=== PATIENT | female | born 1970 | race Caucasian/White ===

== ENCOUNTER 2018-10-11 17:21 | Emergency (ER) | payer BC ==
[2018-10-11 17:34] VITALS: RESP 16
--- NOTE | 2018-10-11 18:03 | ED ---
Extremity Problem HPI - General Chief complaint: Extremity Problem,Nontraumatic Stated complaint: left leg swelling Time Seen by Provider: 10/11/18 17:36 Source: patient Mode of arrival: ambulatory Limitations: no limitations - History of Present Illness Initial comments: -year-old female presented for left lower extremity swelling for 3 weeks. Patient states she is more varicose vein for left and right. Patient states for 3 weeks she has noticed a nonpainful swelling of the left lower extremity denies history of uncontrolled DVT. Patient states she did have one after a >20 years ago. Patient denies use of anticoagulations, calf pain, chest pain or SOB. Patient presents an urgent care facility for evaluation where she was sent to the emergency department for further evaluation. Remaining ROS (-). Upon arrival patient appears well no signs of acute distress. - Related Data Home Medications Medication Instructions Recorded Confirmed Ranitidine HCl [Zantac] 75 mg PO DAILY PRN 10/11/18 10/11/18 Allergies Allergy/AdvReac Type Severity Reaction Status Date / Time No Known Allergies Allergy Verified 10/11/18 17:44 Review of Systems ROS Statement: Those systems with pertinent positive or pertinent negative responses have been documented in the HPI. ROS Other: All systems not noted in ROS Statement are negative. Past Medical History Additional Past Medical History / Comment(s): PANCREATITIS History of Any Multi-Drug Resistant Organisms: None Reported Past Surgical History: Cholecystectomy, Hysterectomy Past Psychological History: No Psychological Hx Reported Smoking Status: Current every day smoker Past Alcohol Use History: None Reported Past Drug Use History: None Reported General Exam - General Exam Comments Initial Comments: General: The patient is awake and alert, in no distress, and does not appear acutely ill. Eye: Pupils are equal, round and reactive to light, extra-ocular movements are intact. No nystagmus. There is normal conjunctiva bilaterally. No signs of icterus. Ears, nose, mouth and throat: There are moist mucous membranes and no oral lesions. Neck: The neck is supple, there is no tenderness or JVD. Cardiovascular: There is a regular rate and rhythm. No murmur, rub or gallop is appreciated. Respiratory: Lungs are clear to auscultation, respirations are non-labored, breath sounds are equal. No wheezes, stridor, rales, or rhonchi. Musculoskeletal: Normal ROM, no tenderness. Strength 5/5. Sensation intact. Pulses equal bilaterally 2+. Neurological: A&O x 3. CN II-XII intact, There are no obvious motor or sensory deficits. Coordination appears grossly intact. Speech is normal. Skin: Skin is warm and dry and no rashes. No pitting edema of the left ankle. NO pain to palpation, (-) HOmans. No tenderness or masses of calf/knee posterior thigh Psychiatric: Cooperative, appropriate mood & affect, normal judgment. Limitations: no limitations Course Vital Signs 10/11/18 10/11/18 10/11/18 17:32 19:19 20:10 Temperature 97.9 F 97.6 F Pulse Rate 94 80 Respiratory 16 16 16 Rate Blood Pressure 106/56 133/89 O2 Sat by Pulse 97 97 Oximetry Medical Decision Making - Medical Decision Making 48-year-old presenting for atraumatic left ankle swelling. Soft tissue swelling of the left ankle. No pain. Negative Homans. No pain or masses palpable. Ultrasound negative for acute blood clot. Patient be discharged with outpatient primary care follow-up. Return parameters discussed as well as option of repeating ultrasound 2 weeks if symptoms are persistent. Patient verbalizes understanding. Patient was discharged. While discussing case with attending provider Disposition Clinical Impression: Left leg swelling, Dependent edema Disposition: HOME SELF-CARE Condition: Good Instructions (If sedation given, give patient instructions): Leg Edema (ED) Additional Instructions: Please use medication as discussed. Please follow-up with family doctor in the next 2 days. Please return to emergency room if the symptoms increase or worsen or for any other concerns. Is patient prescribed a controlled substance at d/c from ED?: No Referrals: None,Stated [Primary Care Provider] - 1-2 days Time of Disposition: 19:35
--- NOTE | 2018-10-11 19:32 | US ---
EXAMINATION TYPE: US venous doppler duplex LE LT DATE OF EXAM: 10/11/2018 7:13 PM COMPARISON: NONE CLINICAL HISTORY: Pain. Left leg pain and swelling x 3 weeks. Hx DVT in the left leg. Pt not on blood thinners. SIDE PERFORMED: Left TECHNIQUE: The lower extremity deep venous system is examined utilizing real time linear array sonog deb with graded compression, doppler sonography and color-flow sonography. VESSELS IMAGED: External Iliac Vein (EIV) Common Femoral Vein Deep Femoral Vein Greater Saphenous Vein * Femoral Vein Popliteal Vein Small Saphenous Vein * Proximal Calf Veins (* superficial vessels) Left Leg: No evidence of DVT from the left proximal calf veins to the left EIV at this time. IMPRESSION: No evidence of deep venous thrombosis in the left leg.
[2018-10-11 20:15] VITALS: BP 133/89; PULSE 80; TEMP 97.6
== END 2018-10-11 20:10 | disposition home or self-care (01) ==
LOC: EC 17:21
DX: R60.0 Localized edema (principal); M79.89 Other specified soft tissue disorders; F17.200 Nicotine dependence, unspecified, uncomplicated
CPT/HCPCS: 99283

== ENCOUNTER 2019-04-03 08:08 | Day surgery (SDC) | payer BC ==
[~2019-04-03 08:08] MED LIST: LACTATED RINGERS 1,000 ML IV SCH; LIDOCAINE 1% 20 ML VIAL (10MG/ML) FOR IV START INTRADERMA PRN
[2019-04-03 08:48] VITALS: RESP 16; TEMP 97.9
[2019-04-03] MEDS ORDERED: fentaNYL (PF) 50 MCG/ML 2 ML AMP ONE (09:25)
[2019-04-03] MEDS ORDERED: MIDAZOLAM 2 MG/2 ML VIAL ONE (09:25)
[2019-04-03] MEDS ORDERED: LIDOCAINE 1% INJ 10MG/ML (20 ML MDV) ONE (09:25)
[2019-04-03] MEDS ORDERED: PROPOFOL 10 MG/ML 20 ML VIAL IV ONE (09:25)
--- NOTE | 2019-04-03 09:46 | P.PCN ---
Date of Procedure: 04/03/19 Description of Procedure: BRIEF HISTORY: Patient is a 48-year-old female who presents for outpatient EGD for evaluation of GERD. Patient reports history of reflux disease for which she was previously on Zantac therapy. She is been switched to Prilosec recently. She did have imaging in the past which was significant for a hiatal hernia. PROCEDURE PERFORMED: Esophagogastroduodenoscopy with biopsy. PREOPERATIVE DIAGNOSIS: GERD, heartburn. ESTIMATED BLOOD LOSS: Minimal. IV sedation per anesthesia. PROCEDURE: After informed consent was obtained, the patient was brought into the endoscopy unit. IV sedation was administered by Anesthesia under continuous monitoring. Initially the Olympus GIF-190 video endoscope was inserted into the mouth. Esophagus intubated without any difficulty. It was gradually advanced into the stomach and duodenum and carefully examined. The bulb and the second part of the duodenum appeared normal, with biopsies taken. The scope at this time was withdrawn to the stomach, adequately insufflated with air, and upon careful examination, mucosa of the antrum, body, cardia and the fundus appeared normal, except for some mild scattered erythema in the antrum and body suggestive of mild gastritis with biopsies taken. The scope was then withdrawn into the esophagus. The GE junction was located at 36 cm from the incisors, with a 1 cm hiatal hernia noted. The esophagus appeared normal, with biopsies of the GE junction taken in the setting of reflux. There were no erosions or ulcerations seen and the patient tolerated the procedure well. IMPRESSION: 1. Mild gastritis antrum and body, biopsied. 2. Biopsies of the duodenum, GE junction. 3. Small hiatal hernia. RECOMMENDATIONS: The findings of this examination were discussed with the patient and her mother. Okay to resume diet. Await pathology from biopsies. Continue Prilosec daily. GERD lifestyle modifications discussed.
[2019-04-03 10:05] VITALS: BP 120/70; PULSE 78
== END 2019-04-03 10:40 | disposition home or self-care (01) ==
LOC: ORWHC2ENDO 08:08
PROVIDERS: ATTEND Internal Medicine
DX: K21.0 Gastro-esophageal reflux disease with esophagitis (principal); K44.9 Diaphragmatic hernia without obstruction or gangrene; K29.50 Unspecified chronic gastritis without bleeding; F17.210 Nicotine dependence, cigarettes, uncomplicated; Z79.1 Long term (current) use of non-steroidal anti-inflammatories (NSAID); Z79.899 Other long term (current) drug therapy; Z90.49 Acquired absence of other specified parts of digestive tract; Z98.890 Other specified postprocedural states; Z90.710 Acquired absence of both cervix and uterus
CPT/HCPCS: 88305; 43239; J2250; J2001; J3010; J2704

== ENCOUNTER → 2020-05-13 | Outpatient (CLI) | payer BC ==
[2020-05-13 15:22] LABS: Basophils # (A) 0.03 X 10*3/uL (0.00-0.10); Basophils % (A) 0.3 %; Eosinophils # (A) 0.43 X 10*3/uL (0.04-0.35); Eosinophils % (A) 3.6 %; HGB 13.2 g/dL (12.0-15.0); Lymphocytes # (A) 4.54 X 10*3/uL (0.90-5.00); Lymphocytes % (A) 38.5 %; MCH 27.7 pg (27.0-32.0); MCHC 32.2 g/dL (32.0-37.0); MCV 86.1 fL (80.0-97.0); Mean Platelet Volume 9.6 fL (9.5-12.2); Monocytes # (A) 0.89 X 10*3/uL (0.20-1.00); Monocytes % (A) 7.5 %; Neutrophils # (A) 5.86 X 10*3/uL (1.80-7.70); Neutrophils % (A) 49.8 %; Platelet Count 452 X 10*3/uL (140-440); RBC 4.76 X 10*6/uL (4.10-5.20); RDW 13.6 % (11.5-14.5); WBC 11.79 X 10*3/uL (4.50-10.00)
[2020-05-13 16:57] LABS: African American GFR (CKD) 100.3 (60.0-200.0); Albumin 4.5 g/dL (3.80-4.90); Albumin/Globulin Ratio 2.25 (1.60-3.17); Anion Gap 6.4 mmol/L (4.00-12.00); BUN/Creat Ratio 18.75 Ratio (12.00-20.00); Calcium 9.2 mg/dL (8.7-10.3); Carbon Dioxide 25.6 mmol/L (21.6-31.8); Chol/HDL Ratio 3.54; LDL Cholesterol,Calculated 113.6 mg/dL (0.0-131.0); Non-African American GFR(CKD) 86.6 (60.0-200.0); Potassium 4.1 mmol/L (3.5-5.5); Total Bilirubin 0.5 mg/dL (0.2-1.2); Total Protein 6.5 g/dL (6.2-8.2); VLDL Calculation 18.4 mg/dL (5.00-40.00)
== END | disposition home or self-care (01) ==
LOC: LABWHC1 09:51
PROVIDERS: ATTEND Family Medicine
DX: Z00.00 Encounter for general adult medical examination without abnormal findings (principal); Z11.59 Encounter for screening for other viral diseases
CPT/HCPCS: 36415; 80053; 80061; 84443; 85025; 86803

== ENCOUNTER 2020-12-07 12:45 | Emergency (ER) | payer BC ==
[2020-12-07] MEDS ORDERED: LIDOCAINE 5% PATCH TOPICAL STA (13:24)
[2020-12-07] MEDS ORDERED: KETOROLAC 15 MG/ML 1 ML VIAL IM STA (13:24)
--- NOTE | 2020-12-07 13:29 | ED ---
General Adult HPI - General Chief complaint: Back Pain/Injury Stated complaint: back pain Time Seen by Provider: 12/07/20 12:59 Source: patient, RN notes reviewed, old records reviewed Mode of arrival: ambulatory Limitations: no limitations - History of Present Illness Initial comments: Patient is a 50-year-old female with past medical history DVT currently about this, pancreatitis secondary to gallbladder dysfunction who presents emergency Department complaining of right back pain. She states she has a history of kidney infections and this feels like one. She denies any recent heavy lifting or muscular skeletal trauma. Denies any falls. His complaint of right-sided back pain. She denies any dysuria, hematuria. Denies any vaginal discharge or bleeding. Denies any possibility of being . Denies any chest pain, shortness breath, nausea, vomiting. She has no other acute complaints at this time including any fevers, chills, sick contacts. She presented to a [facility] yesterday who checked her urine, told her it was clean, discharged home with muscle relaxers which does seem to be helping with the pain. She presents today over concern that she may still have a UTI. - Related Data Home Medications Medication Instructions Recorded Confirmed Albuterol Inhaler (Mhu) [Ventolin 1 puff IN Q4H 04/02/19 04/03/19 Hfa Inhaler (Mhu)] Cetirizine HCl [Zyrtec] 10 mg PO QAM 04/02/19 04/03/19 Ibuprofen [Motrin Ib] 200 - 400 mg PO Q6H PRN 04/02/19 04/03/19 Omeprazole [PriLOSEC] 20 mg PO QAM 04/02/19 04/03/19 Previous Rx's Medication Instructions Recorded Lidocaine 5% Patch [Lidoderm 5% 1 patch TOPICAL DAILY PRN 7 Days 12/07/20 Patch] #7 patch Methocarbamol [Robaxin-750] 1,500 mg PO Q8HR PRN 7 Days #42 12/07/20 tablet Allergies Allergy/AdvReac Type Severity Reaction Status Date / Time No Known Allergies Allergy Verified 12/07/20 12:50 Review of Systems ROS Statement: Those systems with pertinent positive or pertinent negative responses have been documented in the HPI. Review of Systems: CONST: Denies fever EYES: Denies blurry vision ENT: Denies nasal congestion C/V: Denies Chest pain RESP: Denies shortness of breath GI: Denies abdominal pain : Denies dysuria SKIN: Denies rash. MSK: Endorses back pain NEURO: Denies headache ROS Other: All systems not noted in ROS Statement are negative. Past Medical History Past Medical History: Deep Vein Thrombosis (DVT), GERD/Reflux, Osteoarthritis (OA) Additional Past Medical History / Comment(s): PANCREATITIS 2011 SECONDARY TO GB DYSFUNCTION. History of Any Multi-Drug Resistant Organisms: None Reported Past Surgical History: Cholecystectomy, Hysterectomy Additional Past Surgical History / Comment(s): BILATERAL CARPAL TUNNEL Past Anesthesia/Blood Transfusion Reactions: No Reported Reaction Past Psychological History: No Psychological Hx Reported Smoking Status: Current every day smoker Past Alcohol Use History: Occasional Past Drug Use History: None Reported General Exam - General Exam Comments Initial Comments: General: Appears in no acute distress. HEAD: Normal with no signs of head trauma. EYES: PERRLA, EOMI ENT: Hearing grossly intact, normal oropharynx. RESPIRATORY: Clear breath sounds bilaterally. No wheezes, rales, or rhonchi. C/V: Regular rate and rhythm. S1 and S2 auscultated, no edema, peripheral pulses 2+ and intact throughout ABD: Abd is soft, nontender, nondistended EXT: Normal range of motion, no obvious deformity. Patient has no CVA tenderness to percussion. She has no pain in her back on palpation. It is not exacerbated with movement. SKIN: No rashes or lesions observed on exposed skin. NEURO: Alert and oriented 4. Limitations: no limitations Course Vital Signs 12/07/20 12/07/20 12:50 14:20 Temperature 98.0 F 97.7 F Pulse Rate 90 83 Respiratory 20 18 Rate Blood Pressure 122/73 127/78 O2 Sat by Pulse 99 99 Oximetry Medical Decision Making - Medical Decision Making Based on the patient's presentation and physical exam, I'm concerned for possible kidney versus urinary tract infection versus MSK infection. She nurses no other symptoms other than mild pain. I do not believe that laboratory studies or imaging are required at this time. We will start with a urinary analysis and symptomatically treated with a Toradol injection as well as lidocaine patch. Patient was in agreement with this plan. Patient's urinalysis is remarkable for no signs of acute infection. She is not . On reevaluation, patient states her pain is very much improved following administration of pain medications and lidocaine patch. We discussed the results of the urinalysis being negative and that she is likely experiencing muscular skeletal pain. She has no other concerning symptoms or vital sign abnormalities. I still believe she does not require laboratory studies or further imaging at this time. She was in agreement with this plan. She'll follow up if anything worsens. I will provide the patient with a prescription for lidocaine patch, Robaxin. I instructed the patient to follow up with their PCP in the next 3 days. I explained that the patient should return to the emergency department if they experience any worsening symptoms. Strict return precautions were discussed with the patient. The patient expressed understanding of these instructions. I answered all questions that the patient had. The patient was discharged home in good condition with their prescriptions and follow up information. - Lab Data Lab Results 12/07/20 12/07/20 Range/Units 13:31 13:31 Urine Color Yellow Urine Appearance Clear (Clear) Urine pH 6.0 (5.0-8.0) Ur Specific [place] 1.028 (1.001-1.035) Urine Protein Trace H (Negative) Urine Glucose (UA) Negative (Negative) Urine Ketones Negative (Negative) Urine Blood Negative (Negative) Urine Nitrite Negative (Negative) Urine Bilirubin Negative (Negative) Urine Urobilinogen 3.0 (<2.0) mg/dL Ur Leukocyte Esterase Negative (Negative) Urine HCG, Qual Not Detected (Not Detectd) Disposition Clinical Impression: Back pain, Musculoskeletal pain Disposition: HOME SELF-CARE Condition: Good Instructions (If sedation given, give patient instructions): Acute Low Back Pain (ED) Prescriptions: Lidocaine 5% Patch [Lidoderm 5% Patch] 1 patch TOPICAL DAILY PRN 7 Days #7 patch PRN Reason: Pain Methocarbamol [Robaxin-750] 1,500 mg PO Q8HR PRN 7 Days #42 tablet PRN Reason: Pain Is patient prescribed a controlled substance at d/c from ED?: No Referrals: Idalia Patten MD [Primary Care Provider] - 1-2 days
[2020-12-07 13:38] LABS: Appearance,Urine Clear (Clear); Bilirubin,Urine Negative (Negative); Blood,Urine Negative (Negative); Color,Urine Yellow; Glucose,Urine (UA) Negative (Negative); Ketones,Urine Negative (Negative); Leukocyte Esterase,Urine Negative (Negative); Nitrite,Urine Negative (Negative); Protein,Urine Trace (Negative); Specific Gravity,Urine 1.028 (1.001-1.035)
[2020-12-07 14:21] VITALS: BP 127/78; PULSE 83; RESP 18; TEMP 97.7
== END 2020-12-07 14:21 | disposition home or self-care (01) ==
LOC: EC 12:45
DX: M54.9 Dorsalgia, unspecified (principal); K21.9 Gastro-esophageal reflux disease without esophagitis; M19.90 Unspecified osteoarthritis, unspecified site; F17.200 Nicotine dependence, unspecified, uncomplicated; Z79.1 Long term (current) use of non-steroidal anti-inflammatories (NSAID); Z79.51 Long term (current) use of inhaled steroids; Z79.899 Other long term (current) drug therapy; Z86.718 Personal history of other venous thrombosis and embolism; Z90.49 Acquired absence of other specified parts of digestive tract
CPT/HCPCS: 81003; 81025; 99283; 96372; J1885

== ENCOUNTER → 2020-12-19 | Outpatient (CLI) | payer BC | LOC: LABWHC1 14:10 | PROVIDERS: ATTEND Emergency Medicine | DX: Z20.822 Contact with and (suspected) exposure to COVID-19 (principal) | CPT/HCPCS: U0003; C9803; U0005 ==

== ENCOUNTER 2021-02-06 20:55 | Emergency (ER) | payer BC ==
[2021-02-06 21:18] VITALS: RESP 18; TEMP 97.8
--- NOTE | 2021-02-06 21:38 | XR ---
EXAMINATION TYPE: XR wrist complete RT DATE OF EXAM: 02/06/2021 COMPARISON: NONE HISTORY: Wrist pain TECHNIQUE: 4 views FINDINGS: Carpal bones are intact. Metacarpals are intact. I see no fracture nor dislocation. Joint s paces are fairly normal. IMPRESSION: Negative right wrist exam. No fracture.
[2021-02-06] MEDS ORDERED: traMADol 50 MG STARTER PACK 3 TAB BTL PO STA (23:54)
--- NOTE | 2021-02-06 23:54 | ED ---
Upper Extremity HPI - General Chief Complaint: Extremity Injury, Upper Stated Complaint: R hand pain Time Seen by Provider: 02/06/21 23:33 Source: patient, RN notes reviewed Mode of arrival: ambulatory Limitations: no limitations - History of Present Illness Initial Comments: Patient is a 50-year-old female presenting to the emergency Department with co mplaints of pain on her right hand and wrist that just started today. She denies any injuries or trauma to the hand. She denies any fevers or chills. She has history of bilateral carpal tunnel repair about 4 years ago. She also recently had a procedure to remove a small blood clot in her left lower leg, she is currently on a Eliquis. This procedure was done about a week ago. She denies any chest pain or shortness of breath, no cough or chills. She has no further complaints. - Related Data Home Medications Medication Instructions Recorded Confirmed Albuterol Inhaler (Mhu) [Ventolin 1 puff IN Q4H 04/02/19 04/03/19 Hfa Inhaler (Mhu)] Cetirizine HCl [Zyrtec] 10 mg PO QAM 04/02/19 04/03/19 Ibuprofen [Motrin Ib] 200 - 400 mg PO Q6H PRN 04/02/19 04/03/19 Omeprazole [PriLOSEC] 20 mg PO QAM 04/02/19 04/03/19 Previous Rx's Medication Instructions Recorded Lidocaine 5% Patch [Lidoderm 5% 1 patch TOPICAL DAILY PRN 7 Days 12/07/20 Patch] #7 patch Methocarbamol [Robaxin-750] 1,500 mg PO Q8HR PRN 7 Days #42 12/07/20 tablet Allergies Allergy/AdvReac Type Severity Reaction Status Date / Time No Known Allergies Allergy Verified 02/06/21 21:18 Review of Systems ROS Statement: Those systems with pertinent positive or pertinent negative responses have been documented in the HPI. ROS Other: All systems not noted in ROS Statement are negative. Past Medical History Past Medical History: Deep Vein Thrombosis (DVT), GERD/Reflux, Osteoarthritis (OA) Additional Past Medical History / Comment(s): PANCREATITIS 2010 SECONDARY TO GB DYSFUNCTION. left leg DVT History of Any Multi-Drug Resistant Organisms: None Reported Past Surgical History: Cholecystectomy, Hysterectomy Additional Past Surgical History / Comment(s): BILATERAL CARPAL TUNNEL Past Anesthesia/Blood Transfusion Reactions: No Reported Reaction Past Psychological History: No Psychological Hx Reported Smoking Status: Current every day smoker Past Alcohol Use History: Occasional Past Drug Use History: None Reported General Exam - General Exam Comments Initial Comments: GENERAL: Patient is well-developed and well-nourished. Patient is nontoxic and in no acute distress. HEAD: Atraumatic, normocephalic. EYES: Pupils equal round and reactive to light, extraocular movements intact, sclera anicteric, conjunctiva are normal. Eyelids were unremarkable. LUNGS: Unlabored respirations. Breath sounds clear to auscultation bilaterally and equal. No wheezes rales or rhonchi. HEART: Regular rate and rhythm without murmurs, rubs or gallops. MUSCULOSKELETAL: Patient has pain with palpation of the dorsal aspect of the right hand, she has some mild swelling present, no bruising, no erythema or signs of infection. She has pain with finger range of motion, but has full motion. She is neurovascular intact. No swelling of the right arm. No clubbing or cyanosis. SKIN: Warm, Dry, normal turgor, no rashes or lesions noted. Limitations: no limitations Course Vital Signs 02/06/21 21:14 Temperature 97.8 F Pulse Rate 93 Respiratory 18 Rate Blood Pressure 109/64 O2 Sat by Pulse 99 Oximetry Medical Decision Making - Medical Decision Making Patient is a 50-year-old female here with right hand pain and started today. No injuries or trauma. Her exam is unremarkable except for some very mild swelling noted. X-rays are negative. Her exam is consistent with a mild contusion. I recommended ice to the area, Tylenol or ibuprofen for any discomfort. She is requesting a work note today. She can follow up with her primary care if symptoms persist. She is agreeable to this plan of care and she is stable for discharge. Disposition Clinical Impression: Right hand pain Disposition: HOME SELF-CARE Condition: Stable Instructions (If sedation given, give patient instructions): Arthralgia (ED) Additional Instructions: Please return to the Emergency Department if symptoms worsen or any other concerns. Recommend ice to the area, Tylenol or ibuprofen for any discomfort. May apply a brace or Nithin wrap as discussed. Follow up with your primary care if symptoms persist. Is patient prescribed a controlled substance at d/c from ED?: No Referrals: Idalia Patten MD [Primary Care Provider] - 1-2 days Time of Disposition: 23:54
[2021-02-07 00:49] VITALS: BP 124/89; PULSE 79
== END 2021-02-07 00:50 | disposition home or self-care (01) ==
LOC: EC 20:55
DX: M79.641 Pain in right hand (principal); M19.90 Unspecified osteoarthritis, unspecified site; K21.9 Gastro-esophageal reflux disease without esophagitis; F17.200 Nicotine dependence, unspecified, uncomplicated; Z79.1 Long term (current) use of non-steroidal anti-inflammatories (NSAID); Z86.718 Personal history of other venous thrombosis and embolism; Z90.49 Acquired absence of other specified parts of digestive tract
CPT/HCPCS: 99283

== ENCOUNTER 2021-08-29 19:51 | Emergency (ER) | payer BC ==
[2021-08-29 20:00] VITALS: BP 125/72; PULSE 102; RESP 20; TEMP 98.1
--- NOTE | 2021-08-29 20:16 | XR ---
EXAMINATION TYPE: XR knee complete RT DATE OF EXAM: 08/29/2021 COMPARISON: NONE HISTORY: Pain TECHNIQUE: 3 views FINDINGS: There is no sign of fracture nor dislocation. There is mild knee joint effusion. Joint spac es are normal. IMPRESSION: New joint effusion. No fracture seen.
[2021-08-29] MEDS ORDERED: MORPHINE SULFATE 4 MG/ML SYRINGE IM STA (20:45)
--- NOTE | 2021-08-29 20:50 | ED ---
Fall HPI - General Chief Complaint: Fall Stated Complaint: Fall @1600/ R knee pain Time Seen by Provider: 08/29/21 20:05 Source: patient Mode of arrival: ambulatory - History of Present Illness Initial Comments: 51-year-old female presents emergency department for right knee pain. States that she was at home and attempted to step over her dog. Dog ended up standing up and patient twisted her knee, falling to the ground and landing on her buttock. Injury happened at 4:00 p,. She has been unable to weight-bear on the right lower extremity. She did not take any medications for pain at home. Patient is on anticoagulation for DVT. Denies any head injury. No neck or back pain. No other alleviating, precipitating or modifying factors - Related Data Home Medications Medication Instructions Recorded Confirmed Albuterol Inhaler (Mhu) [Ventolin 1 puff IN Q4H 04/02/19 04/03/19 Hfa Inhaler (Mhu)] Cetirizine HCl [Zyrtec] 10 mg PO QAM 04/02/19 04/03/19 Ibuprofen [Motrin Ib] 200 - 400 mg PO Q6H PRN 04/02/19 04/03/19 Omeprazole [PriLOSEC] 20 mg PO QAM 04/02/19 04/03/19 Previous Rx's Medication Instructions Recorded Lidocaine 5% Patch [Lidoderm 5% 1 patch TOPICAL DAILY PRN 7 Days 12/07/20 Patch] #7 patch Methocarbamol [Robaxin-750] 1,500 mg PO Q8HR PRN 7 Days #42 12/07/20 tablet HYDROcodone/APAP 10-325MG [[place] 1 tab PO Q4HR PRN #18 tab 08/29/21 10-325] Allergies Allergy/AdvReac Type Severity Reaction Status Date / Time No Known Allergies Allergy Verified 08/29/21 20:00 Review of Systems ROS Statement: Those systems with pertinent positive or pertinent negative responses have been documented in the HPI. ROS Other: All systems not noted in ROS Statement are negative. Past Medical History Past Medical History: Deep Vein Thrombosis (DVT), GERD/Reflux, Osteoarthritis (OA) Additional Past Medical History / Comment(s): PANCREATITIS 2010 SECONDARY TO GB DYSFUNCTION. left leg DVT History of Any Multi-Drug Resistant Organisms: None Reported Past Surgical History: Cholecystectomy, Hysterectomy Additional Past Surgical History / Comment(s): BILATERAL CARPAL TUNNEL Past Anesthesia/Blood Transfusion Reactions: No Reported Reaction Past Psychological History: No Psychological Hx Reported Smoking Status: Current every day smoker Past Alcohol Use History: Occasional Past Drug Use History: None Reported General Exam Limitations: no limitations General appearance: alert, in no apparent distress Head exam: Present: atraumatic, normocephalic, normal inspection Extremities exam: Present: other (right knee joint swelling. Negative anterior drawer sign. 2+ DP and PT pulses. intact sensation. intact flexion and extension at the knee. No hip or ankle pain) Course Vital Signs 08/29/21 19:57 Temperature 98.1 F Pulse Rate 102 H Respiratory 20 Rate Blood Pressure 125/72 O2 Sat by Pulse 100 Oximetry Medical Decision Making - Medical Decision Making Upon arrival patient was placed into room 33. There are history and physical exam was performed. Patient is given a dose of pain medications. Sent over for x-ray which demonstrates new joint effusion. She will be placed in a knee immobilizer and given a prescribe for crutches. Pain medication since the pharmacy. Patient will follow up with orthopedics for further evaluation for possible internal derangement. Return to the emergency room for any new or worsening symptoms for patient. She will plan was discharged home in stable condition Disposition Clinical Impression: Fall, Right knee pain, Joint effusion Disposition: HOME SELF-CARE Condition: Stable Instructions (If sedation given, give patient instructions): Knee Pain (ED) Additional Instructions: Please wear the knee immobilizer and ambulate with the crutches. Do not weight bear. Take pain medications as directed. Rest, ice and elevate the extremity. Follow up with the orthopedic associates for possible further imaging and management. Prescriptions: HYDROcodone/APAP 10-325MG [[place] 10-325] 1 tab PO Q4HR PRN #18 tab PRN Reason: pain Is patient prescribed a controlled substance at d/c from ED?: Yes When asked, does pt state using other controlled substances?: No If prescribed controlled substance>3 days was MAPS reviewed?: Prescribed <3 Days If opioid is for acute pain is fill amount 7 days or less?: Yes Referrals: Idalia Patten MD [Primary Care Provider] - 1-2 days Time of Disposition: 20:56
== END 2021-08-30 00:30 | disposition home or self-care (01) ==
LOC: EC 19:51
DX: M25.461 Effusion, right knee (principal); K21.9 Gastro-esophageal reflux disease without esophagitis; F17.200 Nicotine dependence, unspecified, uncomplicated; W18.30XA Fall on same level, unspecified, initial encounter; Z79.83 Long term (current) use of bisphosphonates
CPT/HCPCS: 73562; 99284; 96372; J2270

== ENCOUNTER 2022-02-25 10:32 | Emergency (ER) | payer BC ==
[2022-02-25 10:41] VITALS: RESP 18; TEMP 98
[2022-02-25] MEDS ORDERED: ASPIRIN 81 MG PO STA (10:45)
[2022-02-25] MEDS ORDERED: KETOROLAC 15 MG/ML 1 ML VIAL IVP STA (10:56)
--- NOTE | 2022-02-25 11:41 | XR ---
EXAMINATION TYPE: XR chest 2V DATE OF EXAM: 02/25/2022 COMPARISON: NONE HISTORY: Shortness of breath TECHNIQUE: Frontal and lateral views of the chest are obtained. FINDINGS: Scattered senescent parenchymal changes noted. No evidence for infiltrate. No evidence for atelectasis. Heart size is stable. Mediastinal structures are stable and grossly unremarkable. No evidence for hilar prominence. Degenerative changes dorsal spine. IMPRESSION: 1. No evidence for acute pulmonary disease.
[2022-02-25 11:45] LABS: Basophils # (A) 0.1 k/uL (0-0.2); Basophils % (A) 1 %; Eosinophils # (A) 0.4 k/uL (0-0.7); Eosinophils % (A) 3 %; HCT 40.3 % (34.0-46.0); HGB 13.3 gm/dL (11.4-16.0); Lymphocytes # (A) 4.2 k/uL (1.0-4.8); Lymphocytes % (A) 32 %; MCH 28.8 pg (25.0-35.0); MCV 87.1 fL (80.0-100.0); Mean Platelet Volume 7.8; Monocytes # (A) 0.9 k/uL (0-1.0); Monocytes % (A) 7 %; Neutrophils # (A) 7.2 k/uL (1.3-7.7); Neutrophils % (A) 55 %; Platelet Count 453 k/uL (150-450); RBC 4.63 m/uL (3.80-5.40); RDW 13.6 % (11.5-15.5); WBC 13.3 k/uL (3.8-10.6)
[2022-02-25 11:59] LABS: ALT 18 U/L (4-34); AST 21 U/L (14-36); African American GFR (CKD) >90 (>60 ml/min/1.73 sqM); Albumin 4.5 g/dL (3.5-5.0); Alkaline Phosphatase 101 U/L (38-126); Anion Gap 9 mmol/L; Blood Urea Nitrogen 12 mg/dL (7-17); Carbon Dioxide 24 mmol/L (22-30); Chloride 104 mmol/L (98-107); Glucose 95 mg/dL (74-99); Non-African American GFR(CKD) >90 (>60 ml/min/1.73 sqM); Potassium 4.3 mmol/L (3.5-5.1); Sodium 137 mmol/L (137-145); Total Bilirubin 0.4 mg/dL (0.2-1.3); Total Protein 7.1 g/dL (6.3-8.2)
[2022-02-25 12:01] LABS: Partial Thromboplastin Time 25.4 sec (22.0-30.0); Prothrombin Time 10.3 sec (9.0-12.0)
--- NOTE | 2022-02-25 13:30 | ED ---
Chest Pain HPI - General Chief Complaint: Chest Pain Stated Complaint: chest & back pain Time Seen by Provider: 02/25/22 10:45 Source: patient Mode of arrival: ambulatory Limitations: no limitations - History of Present Illness Initial Comments: Patient is a 51-year-old female who presents to the emergency department with a chief complaint of chest pain. Patient states the chest pain started in the middle of her chest yesterday. The chest pain is continuous which she describes it as moderately sharp with radiation to her back in between her shoulder blades. Patient has never had this pain before. There is no radiation to the arms or jaw. The pain is not influenced by activity or breathing. She denies injury. She denies lightheadedness, dizziness, palpitations, shortness of breath, abdominal pain, nausea, vomiting, leg pain, leg swelling. Patient denies history of hypertension, hyperlipidemia, diabetes, stroke, heart attack. She does admit to history of GERD and DVT. Currently on Eliquis due to DVTs from "bleeding disorder ". Family history of cardiac disease includes mother and father with diabetes. She currently smokes tobacco with a 40 year pack history. Denies alcohol use. - Related Data Home Medications Medication Instructions Recorded Confirmed Apixaban [Eliquis] 5 mg PO BID 02/25/22 02/25/22 Folic Acid 1 mg PO DAILY 02/25/22 02/25/22 Multivitamins, Thera [Multivitamin 1 tab PO DAILY 02/25/22 02/25/22 (formulary)] Simponi Infusion 1 dose IV Q42D 02/25/22 02/25/22 metHOTREXate sodium [Methotrexate] 10 mg PO SA 02/25/22 02/25/22 Previous Rx's Medication Instructions Recorded Ibuprofen [Motrin] 800 mg PO Q6HR PRN #30 tab 02/25/22 Allergies Allergy/AdvReac Type Severity Reaction Status Date / Time No Known Allergies Allergy Verified 02/25/22 11:53 Review of Systems ROS Statement: Those systems with pertinent positive or pertinent negative responses have been documented in the HPI. ROS Other: All systems not noted in ROS Statement are negative. EKG Findings - EKG Comments: EKG Findings:: EKG taken at 10:48, interpreted by me. Sinus rhythm, no ST seg ment or T-wave changes. Ventricular rate 82. IL interval 140. QRS duration 86. QTc 383 Past Medical History Past Medical History: Deep Vein Thrombosis (DVT), GERD/Reflux, Osteoarthritis (OA), Rheumatoid Arthritis (RA) Additional Past Medical History / Comment(s): PANCREATITIS 2010 SECONDARY TO GB DYSFUNCTION. left leg DVT History of Any Multi-Drug Resistant Organisms: None Reported Past Surgical History: Cholecystectomy, Hysterectomy Additional Past Surgical History / Comment(s): BILATERAL CARPAL TUNNEL Past Anesthesia/Blood Transfusion Reactions: No Reported Reaction Past Psychological History: No Psychological Hx Reported Smoking Status: Current every day smoker Past Alcohol Use History: Occasional Past Drug Use History: None Reported General Exam Limitations: no limitations General appearance: alert, in no apparent distress Head exam: Present: atraumatic, normocephalic, normal inspection Eye exam: Present: normal appearance, PERRL, EOMI. Absent: scleral icterus, conjunctival injection, periorbital swelling Respiratory exam: Present: normal lung sounds bilaterally. Absent: respiratory distress, wheezes, rales, rhonchi, stridor, chest wall tenderness, decreased breath sounds Cardiovascular Exam: Present: regular rate, normal rhythm, normal heart sounds. Absent: systolic murmur, diastolic murmur, rubs, gallop, clicks Neurological exam: Present: alert, oriented X3, CN II-XII intact Psychiatric exam: Present: normal affect, normal mood Skin exam: Present: warm, dry, intact, normal color. Absent: rash Course Vital Signs 02/25/22 02/25/22 02/25/22 10:37 11:22 13:45 Temperature 98 F Pulse Rate 98 80 82 Respiratory 18 18 18 Rate Blood Pressure 131/88 136/80 132/84 O2 Sat by Pulse 99 99 96 Oximetry Chest Pain MDM - MDM This is 51-year-old female presenting with chest pain. Patient is well- appearing and in no apparent distress. EKG obtained and interpreted by me as sinus rhythm, no ST segment or T-wave changes. Laboratory studies obtained. There is mild leukocytosis at 13.3, likely a stress reaction. Troponin is normal limits. D-dimer is within normal limits. Other laboratory studies are relatively unremarkable. Chest x-ray obtained interpreted by me which is negative for acute process. Patient given aspirin and Toradol. On reevaluation she reports some improvement of symptoms. At this time there are no diagnostic studies to explain patient's symptoms. I did recommend observation with repeat troponin however patient declined. Patient will be discharged with strict return parameters. She'll be sent home with Motrin and she will follow-up with primary care provider. Dr. Meza is my attending. Disposition Clinical Impression: Chest pain, Back pain Disposition: HOME SELF-CARE Condition: Good Instructions (If sedation given, give patient instructions): Chest Pain (ED) Additional Instructions: Please take Motrin as directed. Follow-up with primary care provider in one to 2 days. Return to the emergency department experience new, concerning, or worsening symptoms. Prescriptions: Ibuprofen [Motrin] 800 mg PO Q6HR PRN #30 tab PRN Reason: Pain Is patient prescribed a controlled substance at d/c from ED?: No Referrals: Idalia Patten MD [Primary Care Provider] - 1-2 days Time of Disposition: 13:30
[2022-02-25 13:47] VITALS: BP 132/84; PULSE 82
== END 2022-02-25 13:55 | disposition home or self-care (01) ==
LOC: EC 10:32
DX: R07.9 Chest pain, unspecified (principal); M54.9 Dorsalgia, unspecified; Z86.718 Personal history of other venous thrombosis and embolism; M06.9 Rheumatoid arthritis, unspecified; M19.90 Unspecified osteoarthritis, unspecified site; F17.200 Nicotine dependence, unspecified, uncomplicated; Z79.01 Long term (current) use of anticoagulants; Z20.822 Contact with and (suspected) exposure to COVID-19
CPT/HCPCS: 36415; 93005; 85379; 80053; 83735; 84484; 85025; 85610; 85730; 87635; 71046; 99285; 96374; J1885

== ENCOUNTER 2022-03-07 13:07 | Observation (INO) | payer BC ==
[2022-03-07] MEDS ORDERED: KETOROLAC 15 MG/ML 1 ML VIAL IVP STA (14:22)
--- NOTE | 2022-03-07 14:26 | ED ---
General Adult HPI - General Source: patient, RN notes reviewed Mode of arrival: wheelchair Limitations: no limitations <Uche Roth - Last Filed: 03/07/22 14:24> <Abe Peña - Last Filed: 03/07/22 17:30> - General Chief complaint: Extremity Problem,Nontraumatic Stated complaint: Left leg pain Time Seen by Provider: 03/07/22 14:02 - History of Present Illness Initial comments: patient is a pleasant 51-year-old female presenting to the emergency department with concerns of left leg pain. Onset was yesterday morning. Patient has discomfort of her left calf and left ankle, mostly of the left ankle. Patient does have history of previous DVT and is on an eloquent secondary to this. Patient states discomfort is somewhat similar however more so in the ankle. Patient denies any trauma. No redness. No fever. No chest pain or dyspnea. (Uche Roth) - Related Data Home Medications Medication Instructions Recorded Confirmed Apixaban [Eliquis] 5 mg PO BID 02/25/22 03/07/22 Folic Acid 1 mg PO DAILY 02/25/22 03/07/22 Multivitamins, Thera [Multivitamin 1 tab PO DAILY 02/25/22 03/07/22 (formulary)] Simponi Infusion 1 dose IV Q42D 02/25/22 03/07/22 metHOTREXate sodium [Methotrexate] 10 mg PO SA 02/25/22 03/07/22 Previous Rx's Medication Instructions Recorded Ibuprofen [Motrin] 800 mg PO Q6HR PRN #30 tab 02/25/22 Allergies Allergy/AdvReac Type Severity Reaction Status Date / Time No Known Allergies Allergy Verified 03/07/22 16:24 Review of Systems ROS Other: All systems not noted in ROS Statement are negative. Constitutional: Denies: fever Eyes: Denies: eye pain ENT: Denies: ear pain Respiratory: Denies: cough Cardiovascular: Denies: chest pain Endocrine: Denies: fatigue Gastrointestinal: Denies: abdominal pain Genitourinary: Denies: dysuria Musculoskeletal: Reports: as per HPI. Denies: back pain Skin: Denies: rash Neurological: Denies: weakness <Uche Roth - Last Filed: 03/07/22 14:24> ROS Other: All systems not noted in ROS Statement are negative. <Abe Peña - Last Filed: 03/07/22 17:30> ROS Statement: Those systems with pertinent positive or pertinent negative responses have been documented in the HPI. Past Medical History Past Medical History: Blood Disorder, Deep Vein Thrombosis (DVT), GERD/Reflux, Osteoarthritis (OA), Rheumatoid Arthritis (RA) Additional Past Medical History / Comment(s): PANCREATITIS 2011 SECONDARY TO GB DYSFUNCTION. left leg DVT. hypercoaguable state D68.59 History of Any Multi-Drug Resistant Organisms: None Reported Past Surgical History: Cholecystectomy, Hysterectomy Additional Past Surgical History / Comment(s): BILATERAL CARPAL TUNNEL Past Anesthesia/Blood Transfusion Reactions: No Reported Reaction Past Psychological History: No Psychological Hx Reported Smoking Status: Current every day smoker Past Alcohol Use History: Occasional Past Drug Use History: None Reported <Uche Roth - Last Filed: 03/07/22 14:24> General Exam Limitations: no limitations General appearance: alert, in no apparent distress Head exam: Present: normocephalic Eye exam: Present: normal appearance Neck exam: Present: normal inspection Respiratory exam: Present: normal lung sounds bilaterally Cardiovascular Exam: Present: regular rate, normal rhythm Expanded Peripheral pulses: 2+: Posterior Tibialis (R), Posterior Tibialis (L), Dorsalis Pedis (R), Dorsalis Pedis (L) GI/Abdominal exam: Present: soft. Absent: tenderness Extremities exam: Present: calf tenderness (mild to moderate), other (left ankle with mild to moderate swelling and moderate tenderness. Pedal pulses intact. Strength and sensation intact. No warmth. No erythema.) Neurological exam: Present: alert Psychiatric exam: Present: normal affect, normal mood Skin exam: Present: normal color. Absent: erythema <Uche Roth - Last Filed: 03/07/22 14:24> Course <Abe Peña - Last Filed: 03/07/22 17:30> Vital Signs 03/07/22 13:34 Temperature 97.5 F L Pulse Rate 101 H Respiratory 18 Rate Blood Pressure 116/70 O2 Sat by Pulse 99 Oximetry - Reevaluation(s) Reevaluation #1: 03/07/22 16:48 Patient was endorsed to me by ED physician Dr. Roth (secondary to shift change) with the patient's left lower extremity venous duplex ultrasound report still pending. Patient's left lower extremity venous duplex ultrasound demonstrates an acute left femoral vein DVT. Patient reports that she has factor V Leiden deficiency, and she states that she has had 2 DVTs in the past. Patient states that she is currently on Eliquis anticoagulation therapy, and she states that she last took a dose of her Eliquis last night. Case, H&P and test results were discussed with Dr. Chowdary (vascular surgery). She recommends starting the patient on a IV heparin drip given that the patient has developed an acute DVT while on Eliquis anticoagulation therapy. She also recommends admitting the patient to the hospital, and she states that she would be happy to see the patient in consultation. She also recommends consulting hematology. She has no further recommendations at this time. 03/07/22 17:06 Patient is aware of my discussion with Dr. Chowdary as above, as well as her recommendations. She agrees with heparin anticoagulation and hospital admission at this time. She continues to deny having any chest pain or dyspnea while in the ED. She denies development of any other new symptoms while in the ED. She feels comfortable with this plan. 03/07/22 17:30 Case, H&P, test results, ED management thus far and my discussion with Dr. Chowdary as above were discussed with Dr. Duvall. She accepts hospital admission. She has no further recommendations at this time. (Abe Peña) Medical Decision Making - Lab Data Result diagrams: 03/07/22 15:23 03/07/22 15:23 <Abe Peña - Last Filed: 03/07/22 17:30> - Lab Data Lab Results 03/07/22 03/07/22 03/07/22 Range/Units 15:23 15:23 15:23 WBC 17.3 H (3.8-10.6) k/uL RBC 4.46 (3.80-5.40) m/uL Hgb 12.6 (11.4-16.0) gm/dL Hct 38.9 (34.0-46.0) % MCV 87.2 (80.0-100.0) fL MCH 28.2 (25.0-35.0) pg MCHC 32.3 (31.0-37.0) g/dL RDW 13.4 (11.5-15.5) % Plt Count 425 (150-450) k/uL MPV 7.4 Neutrophils % 67 % Lymphocytes % 25 % Monocytes % 5 % Eosinophils % 1 % Basophils % 0 % Neutrophils # 11.6 H (1.3-7.7) k/uL Lymphocytes # 4.3 (1.0-4.8) k/uL Monocytes # 0.8 (0-1.0) k/uL Eosinophils # 0.2 (0-0.7) k/uL Basophils # 0.1 (0-0.2) k/uL PT 10.3 (9.0-12.0) sec INR 1.0 (<1.2) APTT 25.0 (22.0-30.0) sec Sodium 137 (137-145) mmol/L Potassium 4.2 (3.5-5.1) mmol/L Chloride 105 (98-107) mmol/L Carbon Dioxide 26 (22-30) mmol/L Anion Gap 6 mmol/L BUN 12 (7-17) mg/dL Creatinine 0.81 (0.52-1.04) mg/dL Est GFR (CKD-EPI)AfAm >90 (>60 ml/min/1.73 sqM) Est GFR (CKD-EPI)NonAf 85 (>60 ml/min/1.73 sqM) Glucose 103 H (74-99) mg/dL Uric Acid 5.1 (3.7-7.4) mg/dL Calcium 8.7 (8.4-10.2) mg/dL C-Reactive Protein 3.9 H (<1.0) mg/dL - Radiology Data Left lower extremity venous duplex ultrasound: 1. Duplicated femoral vein. 2. Acute DVT in the proximal and mid femoral vein as described above. (Abe Ledesma) Disposition <Uche Roth - Last Filed: 03/07/22 14:24> Is patient prescribed a controlled substance at d/c from ED?: No Time of Disposition: 17:30 <Abe Peña - Last Filed: 03/07/22 17:30> Clinical Impression: Left leg DVT Disposition: ADMITTED IP TO THIS HOSP Condition: Stable Referrals: Idalia Patten MD [Primary Care Provider] - 1-2 days
--- NOTE | 2022-03-07 15:24 | XR ---
Left ankle. HISTORY: Pain COMPARISON: None TECHNIQUE: 3 views of the left ankle were obtained. FINDINGS: There is no fracture, dislocation, intraosseous or intra-articular abnormality. The ankle mortise is intact. There is a suggestion of mild to moderate soft tissue swelling over the medial malleolus. IMPRESSION: Mild to moderate soft tissue swelling over the medial malleolus with no other significant abnormality seen.
--- NOTE | 2022-03-07 15:29 | XR ---
Left tibia and fibula. HISTORY: Pain. COMPARISON: None. TECHNIQUE: 4 views left tibia and fibula were obtained. EYES: Left tibia and fibula are intact and there is no fracture or focal intraosseous abnormality. The adi ex is intact. Soft tissues unremarkable. IMPRESSION: No significant abnormality seen.
[2022-03-07 15:42] LABS: Basophils # (A) 0.1 k/uL (0-0.2); Basophils % (A) 0 %; Eosinophils # (A) 0.2 k/uL (0-0.7); Eosinophils % (A) 1 %; HCT 38.9 % (34.0-46.0); HGB 12.6 gm/dL (11.4-16.0); Lymphocytes # (A) 4.3 k/uL (1.0-4.8); Lymphocytes % (A) 25 %; MCH 28.2 pg (25.0-35.0); MCHC 32.3 g/dL (31.0-37.0); MCV 87.2 fL (80.0-100.0); Mean Platelet Volume 7.4; Monocytes # (A) 0.8 k/uL (0-1.0); Monocytes % (A) 5 %; Neutrophils # (A) 11.6 k/uL (1.3-7.7); Neutrophils % (A) 67 %; Platelet Count 425 k/uL (150-450); RBC 4.46 m/uL (3.80-5.40); RDW 13.4 % (11.5-15.5); WBC 17.3 k/uL (3.8-10.6)
[2022-03-07 15:58] LABS: African American GFR (CKD) >90 (>60 ml/min/1.73 sqM); Anion Gap 6 mmol/L; Blood Urea Nitrogen 12 mg/dL (7-17); C Reactive Protein 3.9 mg/dL (<1.0); Calcium 8.7 mg/dL (8.4-10.2); Carbon Dioxide 26 mmol/L (22-30); Chloride 105 mmol/L (98-107); Glucose 103 mg/dL (74-99); Non-African American GFR(CKD) 85 (>60 ml/min/1.73 sqM); Potassium 4.2 mmol/L (3.5-5.1); Prothrombin Time 10.3 sec (9.0-12.0); Sodium 137 mmol/L (137-145); Uric Acid 5.1 mg/dL (3.7-7.4)
--- NOTE | 2022-03-07 16:22 | US ---
EXAMINATION TYPE: US venous doppler duplex LE LT DATE OF EXAM: 03/07/2022 3:45 PM COMPARISON: CLINICAL HISTORY: pain. Patient states history of blood clot in left leg x 2. On blood thinners. Sw elling and redness. SIDE PERFORMED: Left TECHNIQUE: The lower extremity deep venous system is examined utilizing real time linear array sonog deb with graded compression, doppler sonography and color-flow sonography. VESSELS IMAGED: Common Femoral Vein Deep Femoral Vein Greater Saphenous Vein * Femoral Vein Popliteal Vein Small Saphenous Vein * Proximal Calf Veins (* superficial vessels) Left Leg: Appears positive for DVT in proximal and mid femoral vein. Duplicate femoral vein, with o ne appears patent and DVT in the other. The left proximal and mid femoral vein is not patent and noncompressible consistent with acute DVT. F emoral vein is duplicated and the second limb is widely patent. IMPRESSION: 1. Duplicated femoral vein. 2. Acute DVT in the proximal and mid femoral vein as described above.
[2022-03-07] MEDS ORDERED: HEPARIN SODIUM 1,000 UN/ML (10ML VL) IV PRN (16:51)
[2022-03-07] MEDS ORDERED: HEPARIN SODIUM 1,000 UN/ML (10ML VL) IV ONE (16:51)
[2022-03-07] MEDS ORDERED: MORPHINE SULFATE 4 MG/ML SYRINGE IV PRN (17:30)
[2022-03-07] MEDS ORDERED: NALOXONE 0.4 MG/ML 1 ML VIAL IV PRN (17:30)
[2022-03-07] MEDS: HEPARIN SOD,PORK IN 0.45% NACL 25,000 UNIT in 0.45% NACL 1 250ML.BAG IV SCH (17:50)
[2022-03-07 22:34] LABS: Rheumatoid Factor, Qnt 28 IU/mL (0-15)
[2022-03-08] MEDS ORDERED: ACETAMINOPHEN TAB 325 MG TAB PO PRN (09:43)
[2022-03-08] MEDS: HYDROcodone/APAP 5-325MG 1 EACH TAB PO PRN ×2 (10:11→16:14)
[2022-03-08] MEDS: HEPARIN SOD,PORK IN 0.45% NACL 25,000 UNIT in 0.45% NACL 1 250ML.BAG IV SCH (10:14)
[2022-03-08 10:45] LABS: HCT 35.4 % (37.2-46.3); HGB 11.2 g/dL (12.0-15.0); MCH 28.4 pg (27.0-32.0); MCHC 31.6 g/dL (32.0-37.0); MCV 89.6 fL (80.0-97.0); Mean Platelet Volume 9.8 fL (9.5-12.2); NRBC Per 100 WBC 0 /100 WBCS (0.0-0.0); Platelet Count 391 X 10*3/uL (140-440); RBC 3.95 X 10*6/uL (4.10-5.20); RDW 14.1 % (11.5-14.5)
[2022-03-08 10:51] LABS: African American GFR (CKD) 116.1 (60.0-200.0); Albumin 3.6 g/dL (3.8-4.9); Albumin/Globulin Ratio 1.52 (1.60-3.17); Anion Gap 9.7 mmol/L (10.00-18.00); BUN/Creat Ratio 14.55 Ratio (12.00-20.00); Blood Urea Nitrogen 10.2 mg/dL (9.0-27.0); Calcium 8.3 mg/dL (8.7-10.3); Carbon Dioxide 23.4 mmol/L (20.0-27.5); Globulin 2.4 g/dL (1.6-3.3); Non-African American GFR(CKD) 100.1 (60.0-200.0); Potassium 3.9 mmol/L (3.5-5.5); Total Bilirubin 0.5 mg/dL (0.30-1.20)
--- NOTE | 2022-03-08 10:53 | US ---
EXAMINATION TYPE: US venous doppler duplex LE RT DATE OF EXAM: 03/08/2022 10:37 AM COMPARISON: NONE CLINICAL HISTORY: History of LLE DVT. Evaluate RLE SIDE PERFORMED: Right TECHNIQUE: The lower extremity deep venous system is examined utilizing real time linear array sonog deb with graded compression, doppler sonography and color-flow sonography. VESSELS IMAGED: Common Femoral Vein Deep Femoral Vein Greater Saphenous Vein * Femoral Vein Popliteal Vein Small Saphenous Vein * Proximal Calf Veins (* superficial vessels) Right Leg: Negative for DVT IMPRESSION: No evidence for DVT at this time.
[2022-03-08 11:35] LABS: Basophils # (A) 0.04 X 10*3/uL (0.00-0.10); Basophils % (A) 0.3 %; Eosinophils # (A) 0.26 X 10*3/uL (0.04-0.35); Immature Grans, Automated 0.2 %; Lymphocytes # (A) 6.09 X 10*3/uL (0.90-5.00); Lymphocytes % (A) 46.5 %; Monocytes # (A) 1.16 X 10*3/uL (0.20-1.00); Monocytes % (A) 8.9 %; Neutrophils # (A) 5.52 X 10*3/uL (1.80-7.70); Neutrophils % (A) 42.1 %
[2022-03-08] MEDS ORDERED: ALPRAZolam 0.25 MG TAB PO PRN (11:57)
--- NOTE | 2022-03-08 12:24 | P.GSCN ---
History of Present Illness Consult date: 03/08/22 Reason for Consult: Left lower extremity DVT on anticoagulation Requesting physician: Abe Peña History of present illness: This is a pleasant 51-year-old female who presented to the emergency department with complaints of left lower extremity pain. Patient has a past medical history including factor V, rheumatoid arthritis, with previous lower extremity DVT. She is a current daily smoker, one pack per day. States she started having pain last Tuesday that continue Phoebe, worse over the weekend. States mo st of the pain is near her ankle. She presented to the emergency department and underwent x-rays of the left ankle reporting mild to moderate soft tissue swelling over medial malleolus with no significant abnormality seen as well as tib-fib x-ray with no significant abnormality seen. She then underwent venous duplex of left lower extremity that was positive for DVT. Vascular surgery was consulted for this. Patient had been on Eliquis, which she states she has been taking regularly. She denies any recent surgeries, no recent traveling, she states that she is on her feet all day at work. She does have a history of a DVT in the left lower extremity with thrombectomy in about a year ago done at [facility]. She states that she is supposed to wear SCD sleeves twice a day for 2 hours however she states that she has not been using them. She also has not been using any support stockings as directed. She denies any previous history of pulmonary embolism. She denies any chest pain or shortness of breath. She denies abdominal pain, nausea vomiting fevers or chills. No complaints of pain or cramping in the right lower extremity. Review of Systems A 14 point review systems was completed all pertinent positives and negatives as stated in the HPI. Past Medical History Past Medical History: Blood Disorder, Deep Vein Thrombosis (DVT), GERD/Reflux, Osteoarthritis (OA), Rheumatoid Arthritis (RA) Additional Past Medical History / Comment(s): PANCREATITIS 2010 SECONDARY TO GB DYSFUNCTION. left leg DVT. hypercoaguable state D68.59. (factor 5) History of Any Multi-Drug Resistant Organisms: None Reported Past Surgical History: Cholecystectomy, Hysterectomy Additional Past Surgical History / Comment(s): BILATERAL CARPAL TUNNEL Past Anesthesia/Blood Transfusion Reactions: No Reported Reaction Past Psychological History: No Psychological Hx Reported Smoking Status: Current every day smoker Past Alcohol Use History: Occasional Additional Past Alcohol Use History / Comment(s): SMOKING ABOUT 1PPD. SMOKED OVER 30 YRS. Past Drug Use History: None Reported Medications and Allergies Home Medications Medication Instructions Recorded Confirmed Type Folic Acid 1 mg PO DAILY 02/25/22 03/07/22 History Ibuprofen [Motrin] 800 mg PO Q6HR PRN #30 tab 02/25/22 03/07/22 Rx Multivitamins, Thera [Multivitamin 1 tab PO DAILY 02/25/22 03/07/22 History (formulary)] Simponi Infusion 1 dose IV Q42D 02/25/22 03/07/22 History metHOTREXate sodium [Methotrexate] 10 mg PO SA 02/25/22 03/07/22 History Fondaparinux [Arixtra] 7.5 mg SQ DAILY #30 03/08/22 Rx Allergies Allergy/AdvReac Type Severity Reaction Status Date / Time No Known Allergies Allergy Verified 03/07/22 16:24 Surgical - Exam Vital Signs Temp Pulse Resp BP Pulse Ox 97.5 F L 101 H 18 116/70 99 03/07/22 13:34 03/07/22 13:34 03/07/22 13:34 03/07/22 13:34 03/07/22 13:34 General appearance: The patient is alert, oriented, appears in no acute distress. HET: Head is normocephalic and atraumatic. Pupils are equal and reactive. Neck: Supple without lymphadenopathy. Trachea midline. No audible carotid bruit. Heart: Regular. Lungs: Equal expansion, normal respiratory effort. Abdomen: Soft, nontender, nondistended. Extremities: Normal skin color and turgor. Right lower extremity edema, redness surrounding ankle and midway up to calf. Tenderness to palpation around the medial aspect of the ankle. Palpable DP pulses. Neurological: No focal deficits. Strength and sensation are grossly intact. Results - Labs 03/08/22 07:50 03/08/22 07:50 Abnormal Lab Results - Last 24 Hours (Table) 03/07/22 03/07/22 03/07/22 Range/Units 15:23 15:23 23:02 WBC 17.3 H (3.8-10.6) k/uL Neutrophils # 11.6 H (1.3-7.7) k/uL APTT 161.4 H* (22.0-30.0) sec Glucose 103 H (74-99) mg/dL C-Reactive Protein 3.9 H (<1.0) mg/dL Rheumatoid Factor 28 H (0-15) IU/mL 03/08/22 Range/Units 07:50 WBC (3.8-10.6) k/uL Neutrophils # (1.3-7.7) k/uL APTT 89.4 H (22.0-30.0) sec Glucose (74-99) mg/dL C-Reactive Protein (<1.0) mg/dL Rheumatoid Factor (0-15) IU/mL Diabetes panel 03/07/22 Range/Units 15:23 Sodium 137 (137-145) mmol/L Potassium 4.2 (3.5-5.1) mmol/L Chloride 105 (98-107) mmol/L Carbon Dioxide 26 (22-30) mmol/L BUN 12 (7-17) mg/dL Creatinine 0.81 (0.52-1.04) mg/dL Glucose 103 H (74-99) mg/dL Calcium 8.7 (8.4-10.2) mg/dL Calcium panel 03/07/22 Range/Units 15:23 Calcium 8.7 (8.4-10.2) mg/dL Pituitary panel 03/07/22 Range/Units 15:23 Sodium 137 (137-145) mmol/L Potassium 4.2 (3.5-5.1) mmol/L Chloride 105 (98-107) mmol/L Carbon Dioxide 26 (22-30) mmol/L BUN 12 (7-17) mg/dL Creatinine 0.81 (0.52-1.04) mg/dL Glucose 103 H (74-99) mg/dL Calcium 8.7 (8.4-10.2) mg/dL Adrenal panel 03/07/22 Range/Units 15:23 Sodium 137 (137-145) mmol/L Potassium 4.2 (3.5-5.1) mmol/L Chloride 105 (98-107) mmol/L Carbon Dioxide 26 (22-30) mmol/L BUN 12 (7-17) mg/dL Creatinine 0.81 (0.52-1.04) mg/dL Glucose 103 H (74-99) mg/dL Calcium 8.7 (8.4-10.2) mg/dL - Imaging Comments: Right lower extremity venous duplex negative for DVT Left lower extremity venous duplex with reported duplicated femoral vein, acute DVT in the proximal and mid femoral vein as described above Assessment and Plan Assessment: 1. Left lower extremity DVT on anticoagulation 2. History rheumatoid arthritis 3. History of factor V Leiden 4. History of left lower extremity DVT status post thrombectomy 5. Current daily smoker Plan: Venous duplex reviewed by Dr. Chowdary. Recommend consult to hematology for failed outpatient anticoagulation. Appreciate their recommendations. No plans at this time for any vascular surgical intervention. Recommend BERHANE hose compression stockings. T recommend outpatient follow-up with vascular surgery if he and his swelling do not improve. Thank you for this consultation. The impression and plan of care has been dictated as directed. I performed a history and examination of this patient, discussed the same with the dictator. I agree with the dictator's note ,documented as a scribe. Any additional findings or plans will be noted.
[2022-03-08] MEDS: IOPAMIDOL CONTRAST (ORAL USE) VIAL PO PRN ×2 (12:42→13:44)
--- NOTE | 2022-03-08 14:50 | CT ---
EXAMINATION TYPE: CT angio chest DATE OF EXAM: 03/08/2022 COMPARISON: None HISTORY: Mild SOB on exertion, acute LLE DVT CT DLP: 458.2 mGycm CONTRAST: CT chest with contrast and 3D reconstruction with MIP imaging is performed with IV Contrast, patient injected with 100ml mL of Isovue 370. Contrast-enhanced CT of the chest was performed through the course of the pulmonary arteries with christina g and mediastinal window settings submitted. 3D reconstruction with MIP imaging was also performed. PULMONARY ARTERIES: The pulmonary arteries and their major tributaries are patent. I do not see sánchez dence for sizable filling defect to suggest pulmonary embolic process. LUNGS: Mild emphysematous changes noted. The lungs are clear and free of infiltrate. No evidence for atelectasis. No pulmonary nodule or mass is detected. No pleural effusion. MEDIASTINUM: Thoracic aorta is of normal caliber,however, evaluation is limited given timing of the contrast bolus. If there is concern for thoracic aortic pathology consider PATRICIO. Correlate clinicall y . The heart is not enlarged. No evidence for mediastinal mass. No mediastinal lymph nodes greater than 1cm. HILAR STRUCTURES: No evidence for mass. No hilar lymph nodes greater than 1 cm. UPPER ABDOMEN: No significant abnormality is seen. IMPRESSION: 1. No evidence for Pulmonary embolism at this time.
--- NOTE | 2022-03-08 14:56 | CT ---
EXAMINATION TYPE: CT abdomen pelvis wo con DATE OF EXAM: 03/08/2022 COMPARISON: 01/27/2011 HISTORY: left dvt CT DLP: 833.6 mGycm Automated exposure control for dose reduction was used. TECHNIQUE: Helical acquisition of images was performed from the lung bases through the pelvis. FINDINGS: LUNG BASES: No significant abnormality is appreciated. LIVER/GB: Surgical clips in the gallbladder fossa PANCREAS: No significant abnormality is seen. SPLEEN: No significant abnormality is seen. ADRENALS: No significant abnormality is seen. KIDNEYS: No significant abnormality is seen. URINARY BLADDER: No significant abnormality is seen. ADENOPATHY: None visualized. OSSEOUS STRUCTURES: Hypertrophic and degenerative changes spine BOWEL: Mildly prominent small bowel loops with mildly thickened wall is nonspecific. No inflammatory changes . OTHER: Aorta normal caliber. Post hysterectomy. IMPRESSION: 1. Postcholecystectomy with no definite acute process. 2. Mildly prominent small bowel loops with mildly thickened wall is nonspecific. No inflammatory gooden ges correlate clinically to exclude enteritis.
--- NOTE | 2022-03-08 20:38 | P.CONS ---
History of Present Illness - Reason for Consult Consult date: 03/08/22 Left lower extremity DVT, on anticoagulation Requesting physician: Abe Peña - Chief Complaint Persistent left lower extremity cramping and pain - History of Present Illness Mrs. Triana is a very pleasant 51-year-old female patient of Dr. Tan who reports Tuesday morning bed cramping in the left lower extremity, after the cramp, the pain persisted and began of burn. She came to the ER for assessment, Doppler of the left lower extremity did show acute DVT. Patient denies any provoking factors including recent illness, no COVID-19 infection, long trips, no missed doses of eliquis. She has been on eliquis for about 1-2 years. She does have a history of factor V Leiden. She is treated for rheumatoid arthritis with methotrexate weekly. Last seen September 2021. Hematological Hx: diagnosed with a LLE DVT, but in her 20s, associated with her third . She was treated with a limited duration of anti-coagulation. She did have some intermittent swelling since then in her lower extremities, as she has known venous insufficiency. She had a Doppler in 10/13 that was negative for any clot in the LLE. Went to see her PCP in 09/15 complaining of some numbness in LLE and left-sided back pain. Swelling noted, repeat Dopplers 09/10/20 confirmed DVT involving the mid and distal left femoral vein. As there was normal compressibility and spontaneous flow, chronic thrombus was favored. The patient denied any provoking factors. She was placed on anticoagulation with eliquis on which he continues. She did see Vascular surgeon and had a procedure to "clean out the vein" in 02/15. She was then diagnosed with rheumatoid arthritis after developing multiple areas of joint pains. She is on methotrexate. Hypercoagulable workup done, heterozygous po sitivity for both the prothrombin gene, and factor V Leiden mutations. Plan is for lifelong anticoagulation. Review of Systems 10 point review of systems is negative except as stated in HPI Past Medical History Past Medical History: Blood Disorder, Deep Vein Thrombosis (DVT), GERD/Reflux, Osteoarthritis (OA), Rheumatoid Arthritis (RA) Additional Past Medical History / Comment(s): PANCREATITIS 2010 SECONDARY TO GB DYSFUNCTION. left leg DVT. hypercoaguable state D68.59. (factor 5) History of Any Multi-Drug Resistant Organisms: None Reported Past Surgical History: Cholecystectomy, Hysterectomy Additional Past Surgical History / Comment(s): BILATERAL CARPAL TUNNEL Past Anesthesia/Blood Transfusion Reactions: No Reported Reaction Past Psychological History: No Psychological Hx Reported Smoking Status: Current every day smoker Past Alcohol Use History: Occasional Additional Past Alcohol Use History / Comment(s): SMOKING ABOUT 1PPD. SMOKED OVER 30 YRS. Past Drug Use History: None Reported Medications and Allergies Home Medications Medication Instructions Recorded Confirmed Type Folic Acid 1 mg PO DAILY 02/25/22 03/07/22 History Ibuprofen [Motrin] 800 mg PO Q6HR PRN #30 tab 02/25/22 03/07/22 Rx Multivitamins, Thera [Multivitamin 1 tab PO DAILY 02/25/22 03/07/22 History (formulary)] Simponi Infusion 1 dose IV Q42D 02/25/22 03/07/22 History metHOTREXate sodium [Methotrexate] 10 mg PO SA 02/25/22 03/07/22 History Fondaparinux [Arixtra] 7.5 mg SQ DAILY #30 03/08/22 Rx Allergies Allergy/AdvReac Type Severity Reaction Status Date / Time No Known Allergies Allergy Verified 03/07/22 16:24 Physical Exam Vitals: Vital Signs Temp Pulse Pulse Resp BP BP Pulse Ox 03/08/22 08:23 98.2 F 72 16 108/61 97 03/08/22 08:00 72 16 03/08/22 06:45 80 18 97/58 98 03/08/22 02:09 77 20 107/67 98 03/08/22 01:17 97.5 F L 80 15 118/63 97 03/07/22 19:34 71 16 108/71 03/07/22 18:00 90 18 136/78 100 03/07/22 13:34 97.5 F L 101 H 18 116/70 99 Intake and Output 03/07/22 03/08/22 03/08/22 22:59 06:59 14:59 Intake Total 120.29 109.484 Balance 120.29 109.484 Intake: Intake, IV Titration 120.29 109.484 Amount Heparin Sod,Pork in 0.45% 120.29 109.484 NaCl 25,000 unit In 0.45 % NaCl 1 250ml.bag @ 18 UNITS/KG/HR 16.329 mls/hr IV .[id number] [facility] Rx#: [id number] Other: Voiding Method Toilet Weight 90.718 kg - Constitutional General appearance: average body habitus, cooperative, no acute distress - EENT Eyes: anicteric sclerae, EOMI ENT: hearing grossly normal, normal oropharynx - Neck Neck: no lymphadenopathy - Respiratory Respiratory: bilateral: CTA - Cardiovascular Rhythm: regular Heart sounds: normal: S1, S2 Abnormal Heart Sounds: no systolic murmur, no diastolic murmur, no rub, no S3 Gallop, no S4 Gallop, no click, no other leg Peripheral Edema: right: None, left: Trace - Gastrointestinal General gastrointestinal: no absent bowel sounds, no decreased bowel sounds, no distended, no hepatomegaly, no hyperactive bowel sounds, normal bowel sounds, no organomegaly, no rigid, no scaphoid, soft, no splenomegaly, no tenderness, no umbilical hernia, no ventral hernia - Integumentary Integumentary: normal - Neurologic Neurologic: CNII-XII intact - Musculoskeletal Musculoskeletal: strength equal bilaterally - Psychiatric Psychiatric: A&O x's 3, appropriate affect, intact judgment & insight Results CBC & Chem 7: 03/08/22 07:50 03/08/22 07:50 Labs: Abnormal Lab Results - Last 24 Hours (Table) 03/07/22 03/07/22 03/07/22 Range/Units 15:23 15:23 23:02 WBC 17.3 H (3.8-10.6) k/uL RBC (4.10-5.20) X 10*6/uL Hgb (12.0-15.0) g/dL Hct (37.2-46.3) % MCHC (32.0-37.0) g/dL Neutrophils # 11.6 H (1.3-7.7) k/uL APTT 161.4 H* (22.0-30.0) sec Anion Gap (10.00-18.00) mmol/L Glucose 103 H (74-99) mg/dL Calcium (8.7-10.3) mg/dL AST (13-35) U/L C-Reactive Protein 3.9 H (<1.0) mg/dL Total Protein (6.2-8.2) g/dL Albumin (3.8-4.9) g/dL Albumin/Globulin Ratio (1.60-3.17) g/dL Rheumatoid Factor 28 H (0-15) IU/mL 03/08/22 03/08/22 03/08/22 Range/Units 07:50 07:50 07:50 WBC 13.10 H (3.8-10.6) k/uL RBC 3.95 L (4.10-5.20) X 10*6/uL Hgb 11.2 L (12.0-15.0) g/dL Hct 35.4 L (37.2-46.3) % MCHC 31.6 L (32.0-37.0) g/dL Neutrophils # (1.3-7.7) k/uL APTT 89.4 H (22.0-30.0) sec Anion Gap 9.70 L (10.00-18.00) mmol/L Glucose (74-99) mg/dL Calcium 8.3 L (8.7-10.3) mg/dL AST 52 H (13-35) U/L C-Reactive Protein (<1.0) mg/dL Total Protein 6.0 L (6.2-8.2) g/dL Albumin 3.6 L (3.8-4.9) g/dL Albumin/Globulin Ratio 1.52 L (1.60-3.17) g/dL Rheumatoid Factor (0-15) IU/mL Venous US: report reviewed Assessment and Plan (1) Left leg DVT Current Visit: Yes Status: Acute Priority: High Code(s): I82.402 - ACUTE EMBOLISM AND THOMBOS UNSP DEEP VEINS OF L LOW EXTREM SNOMED Code(s): 791194763 (2) Factor V Leiden mutation Current Visit: Yes Status: Chronic Priority: High Code(s): D68.51 - ACTIVATED PROTEIN C RESISTANCE SNOMED Code(s): 472601780 Plan: Patient has a history of factor V Leiden mutation and prothrombin gene mutation. She has been on anticoagulation with eliquis for at least 1-2 years. This is her third time having an acute component left lower extremity DVT. Also, has a newer diagnosis of rheumatoid arthritis. Possibly autoimmune disease has caused patient to create antibodies leading to a failure of her current anticoagulation? Phospholipid antibodies will be checked. Recommendation is for Arixtra. Will send prescription patient's preferred pharmacy. Case management aware to check for co-pay verification. Medication orders sent to nursing to Administer first dose of Arixtra and turn off the heparin drip simultaneously. Baseline CTA and RLE doppler ordered Doctor attests: I performed a history and physical examination of this patient, developed impression and plan of care. Discussed with dictator. I agree with dictators note, documented as a scribe.
[2022-03-08 20:42] LABS: Cardiolipin Ab IgG Interp NEGATIVE (NEGATIVE); Cardiolipin Ab IgM Interp NEGATIVE (NEGATIVE); Cardiolipin IgA Antibody <2.0 U/mL; Cardiolipin IgM Antibody <1.5 U/mL
--- NOTE | 2022-03-08 22:50 | HP ---
HISTORY AND PHYSICAL CHIEF COMPLAINT: Pain and swelling of the left leg. HISTORY OF PRESENT ILLNESS: This is a 51-year-old woman with a past medical history of multiple medical problems including DVT, history of GERD, DJD, rheumatoid arthritis, was complaining of left leg pain. The patient came to [facility] and evaluation showed rheumatoid factor elevated to 28, and the ultrasound also showed duplicated femoral vein and acute DVT in the proximal and mid femoral vein, which was reviewed personally by me, and the patient was started on IV heparin as initiate and admitted at this time. There is no history of any fever, rigors, or chills at this time. Vascular Surgery has also seen. The right leg is negative for DVT at this time. There is no history of any fever, rigors, or chills. PAST MEDICAL HISTORY: History of previous DVT, history of GERD, DJD. MEDICATIONS: Home medications are reviewed and include methotrexate, dose and rest of the medication noted. ALLERGIES: None. FAMILY HISTORY: No history of heart disease or strokes in the family. SOCIAL HISTORY: Smokes 1 pack per day and occasional alcohol intake. REVIEW OF SYSTEMS: A 14-point review of systems is negative except as mentioned earlier. PHYSICAL EXAMINATION: VITAL SIGNS: Pulse is 80, blood pressure 97/58, respirations 18. CHEST: Clear to auscultation. CARDIOVASCULAR: S1, S2. ABDOMEN: Soft. NERVOUS SYSTEM: No focal deficits. EXTREMITIES: Showed the left leg is swollen, painful, tender, movements also painful. SKIN: No ulcer, rash, bleeding. JOINTS: No active deforming arthropathy. LABORATORY DATA: WBC 18.1. The rest of the labs are noted. ASSESSMENT: 1. Acute deep venous thrombosis of the left leg with severe pain and swelling. 2. History of deep venous thrombosis. 3. History of gastroesophageal reflux disease. 4. History of degenerative joint disease. 5. History of rheumatoid arthritis. 6. History of pancreatitis. 7. Multiple medical issues. RECOMMENDATION AND DISCUSSION: In this 51-year-old woman, who presented with multiple complex medical issues, we will monitor the patient closely. I would recommend to continue with IV heparin. I would also recommend a CT scan of the abdomen and pelvis to complete the workup. Otherwise, Hematology/Oncology and full anticoagulation workup as an outpatient. Vascular Surgery input appreciated. Prognosis is guarded because of multiple complex medical issues. Further recommendations to follow. See orders for details. Symptomatic treatment also will be provided. MMODL / IJN: [id number] /
[2022-03-09] MEDS: HEPARIN SOD,PORK IN 0.45% NACL 25,000 UNIT in 0.45% NACL 1 250ML.BAG IV SCH (06:21)
[2022-03-09] MEDS ORDERED: HEPARIN SODIUM 1,000 UN/ML (10ML VL) MISCELLANE ONE (06:24)
[2022-03-09] MEDS: HYDROcodone/APAP 5-325MG 1 EACH TAB PO PRN (06:46)
[2022-03-09] MEDS ORDERED: PANTOPRAZOLE 40 MG TABLET PO SCH (07:30)
[2022-03-09] MEDS ORDERED: FOLIC ACID 1 MG TAB PO SCH (09:00)
[2022-03-09] MEDS ORDERED: FONDAPARINUX 7.5 MG/0.6 ML SYRINGE SQ SCH (09:00)
[2022-03-09] MEDS ORDERED: MULTIVITAMINS, THERA 1 EACH TAB PO SCH (09:00)
[2022-03-09] MEDS ORDERED: NICOTINE 14MG/24HR PATCH TRANSDERM SCH (09:00)
[2022-03-09 09:03] LABS: HCT 34.1 % (37.2-46.3); HGB 11.1 g/dL (12.0-15.0); MCH 28.2 pg (27.0-32.0); MCHC 32.6 g/dL (32.0-37.0); MCV 86.5 fL (80.0-97.0); Mean Platelet Volume 9.8 fL (9.5-12.2); NRBC Per 100 WBC 0 /100 WBCS (0.0-0.0); Platelet Count 387 X 10*3/uL (140-440); RBC 3.94 X 10*6/uL (4.10-5.20); RDW 14.1 % (11.5-14.5); WBC 10.07 X 10*3/uL (4.50-10.00)
[2022-03-09 09:21] LABS: African American GFR (CKD) 122.3 (60.0-200.0); Anion Gap 9.8 mmol/L (10.00-18.00); Blood Urea Nitrogen 9.6 mg/dL (9.0-27.0); Calcium 8.2 mg/dL (8.7-10.3); Carbon Dioxide 23.2 mmol/L (20.0-27.5); Non-African American GFR(CKD) 105.5 (60.0-200.0); Potassium 4.6 mmol/L (3.5-5.5)
[2022-03-09 10:03] LABS: Basophils # (A) 0.04 X 10*3/uL (0.00-0.10); Basophils % (A) 0.4 %; Eosinophils # (A) 0.33 X 10*3/uL (0.04-0.35); Eosinophils % (A) 3.3 %; Immature Grans, Automated 0.3 %; Lymphocytes # (A) 4.64 X 10*3/uL (0.90-5.00); Lymphocytes % (A) 46.1 %; Monocytes # (A) 1.02 X 10*3/uL (0.20-1.00); Monocytes % (A) 10.1 %; Neutrophils # (A) 4.01 X 10*3/uL (1.80-7.70); Neutrophils % (A) 39.8 %; RBC Morphology NORMAL
[2022-03-09 11:45] LABS: APTT 100 Sec(s) (<43); APTT 1:1 Mix 70 Sec(s) (<43); Dilute Russell Viper Venom 40 Sec(s) (<44); Hexagonal Phase Neutralization Positive (Negative)
--- NOTE | 2022-03-09 13:56 | P.PN ---
Subjective Progress Note Date: 03/09/22 Principal diagnosis: Left lower extremity DVT Patient was seen and examined today as a follow-up for left lower extremity DVT. Patient has BERHANE hose in place. She states she still has some pain and swelling in the left lower extremity. Patient was started on Arixtra today and heparin was discontinued. She continues to deny any shortness of breath or chest pain. She's been up and ambulating. Objective - Vital Signs Vital signs: Vital Signs Temp 97.8 F 03/09/22 08:10 Pulse 67 03/09/22 08:10 Resp 16 03/09/22 08:10 BP 101/61 03/09/22 08:10 Pulse Ox 96 03/09/22 08:10 FiO2 Intake & Output 03/08/22 03/09/22 03/09/22 18:59 06:59 18:59 Intake Total 109.484 237.236 523.999 Balance 109.484 237.236 523.999 Weight 90.718 kg Intake: Intake, IV Titration 109.484 237.236 43.999 Amount Heparin Sod,Pork in 0.45% 109.484 237.236 43.999 NaCl 25,000 unit In 0.45 % NaCl 1 250ml.bag @ 18 UNITS/KG/HR 16.329 mls/hr IV .[id number] [facility] Rx#: [id number] Oral 480 Other: Voiding Method Toilet Toilet # Voids 3 2 - Exam General appearance: The patient is alert, oriented, appears in no acute distress. HET: Head is normocephalic and atraumatic. Neck: Supple without lymphadenopathy. Trachea midline. . Heart: Regular. Lungs: Equal expansion, normal respiratory effort. Abdomen: Soft, nontender, nondistended. Extremities: Bilateral lower extremities with BERHANE hose in place. Left lower extremity with swelling at the ankle and foot. Tender to palpation greatest around the medial aspect of left ankle. Neurological: No focal deficits. Strength and sensation are grossly intact. - Labs CBC & Chem 7: 03/09/22 05:27 03/09/22 05:27 Labs: Abnormal Lab Results - Last 24 Hours (Table) 03/08/22 03/08/22 03/09/22 Range/Units 12:02 16:39 05:27 WBC (4.50-10.00) X 10*3/uL RBC (4.10-5.20) X 10*6/uL Hgb (12.0-15.0) g/dL Hct (37.2-46.3) % Monocytes # (0.20-1.00) X 10*3/uL APTT 52.0 H 40.4 H (22.0-30.0) sec Lupus Anticoag aPTT 100 H (<43) Sec(s) Lupus Anticoag PTT Mix 70 H (<43) Sec(s) Lupus Hexagonal Phase Positive A (Negative) Anion Gap (10.00-18.00) mmol/L Calcium (8.7-10.3) mg/dL 03/09/22 03/09/22 Range/Units 05:27 05:27 WBC 10.07 H (4.50-10.00) X 10*3/uL RBC 3.94 L (4.10-5.20) X 10*6/uL Hgb 11.1 L (12.0-15.0) g/dL Hct 34.1 L (37.2-46.3) % Monocytes # 1.02 H (0.20-1.00) X 10*3/uL APTT (22.0-30.0) sec Lupus Anticoag aPTT (<43) Sec(s) Lupus Anticoag PTT Mix (<43) Sec(s) Lupus Hexagonal Phase (Negative) Anion Gap 9.80 L (10.00-18.00) mmol/L Calcium 8.2 L (8.7-10.3) mg/dL Microbiology - Last 24 Hours (Table) 03/07/22 15:23 Blood Culture - Preliminary Blood No Growth after 24 hours Assessment and Plan Assessment: 1. Left lower extremity DVT on anticoagulation 2. History rheumatoid arthritis 3. History of factor V Leiden 4. History of left lower extremity DVT status post thrombectomy 5. Current daily smoker Plan: Continue with recommendations on anticoagulation from hematology. Discuss with patient importance of smoking cessation. Continue with compression stockings. Patient instructed if pain and swelling does not improve in the next week she should have a follow-up with Dr. Chowdary otherwise see her vascular surgeon out of [facility]. Thank you for this consultation, patient is clear from vascular surgery for discharge. We will sign off at this time. The impression and plan of care has been dictated as directed. Dr. Harris I performed a history and examination of this patient, discussed the same with the dictator. I agree with the dictator's note ,documented as a scribe. Any additional findings or plans will be noted.
[2022-03-09 16:18] VITALS: BP 106/64; PULSE 71; RESP 18; TEMP 98
--- NOTE | 2022-03-09 19:04 | P.PN ---
Subjective Progress Note Date: 03/09/22 Principal diagnosis: Left lower extremity DVT, recurrent, on anticoagulation In follow-up today patient does have persistent swelling in the left lower extremity-She has compression sock on- it is painful to walk on the leg. She has been switched over to Arixtra injections. She denies any unusual bleeding or bruising at this time. She is tolerating the injections okay. Objective - Vital Signs Vital signs: Vital Signs Temp 98.0 F 03/09/22 15:00 Pulse 71 03/09/22 15:00 Resp 18 03/09/22 15:00 BP 106/64 03/09/22 15:00 Pulse Ox 98 03/09/22 15:00 FiO2 Intake & Output 03/09/22 03/09/22 03/10/22 06:59 18:59 06:59 Intake Total 237.236 763.999 Balance 237.236 763.999 Intake: Intake, IV Titration 237.236 43.999 Amount Heparin Sod,Pork in 0.45% 237.236 43.999 NaCl 25,000 unit In 0.45 % NaCl 1 250ml.bag @ 18 UNITS/KG/HR 16.329 mls/hr IV .[id number] [facility] Rx#: [id number] Oral 720 Other: Voiding Method Toilet Toilet # Voids 2 2 - Constitutional General appearance: Present: average body habitus, cooperative, no acute distress - EENT Eyes: Present: anicteric sclerae, EOMI ENT: Present: hearing grossly normal - Respiratory Details: Respirations even and unlabored at rest - Neurologic Neurologic: Present: CNII-XII intact - Musculoskeletal Musculoskeletal Comment(s): Left lower extremity swelling - Psychiatric Psychiatric: Present: A&O x's 3, appropriate affect, intact judgment & insight - Labs CBC & Chem 7: 03/09/22 05:27 03/09/22 05:27 Labs: Abnormal Lab Results - Last 24 Hours (Table) 03/08/22 03/09/22 03/09/22 Range/Units 12:02 05:27 05:27 WBC 10.07 H (4.50-10.00) X 10*3/uL RBC 3.94 L (4.10-5.20) X 10*6/uL Hgb 11.1 L (12.0-15.0) g/dL Hct 34.1 L (37.2-46.3) % Monocytes # 1.02 H (0.20-1.00) X 10*3/uL APTT 40.4 H (22.0-30.0) sec Lupus Anticoag aPTT 100 H (<43) Sec(s) Lupus Anticoag PTT Mix 70 H (<43) Sec(s) Lupus Hexagonal Phase Positive A (Negative) Anion Gap (10.00-18.00) mmol/L Calcium (8.7-10.3) mg/dL 03/09/22 Range/Units 05:27 WBC (4.50-10.00) X 10*3/uL RBC (4.10-5.20) X 10*6/uL Hgb (12.0-15.0) g/dL Hct (37.2-46.3) % Monocytes # (0.20-1.00) X 10*3/uL APTT (22.0-30.0) sec Lupus Anticoag aPTT (<43) Sec(s) Lupus Anticoag PTT Mix (<43) Sec(s) Lupus Hexagonal Phase (Negative) Anion Gap 9.80 L (10.00-18.00) mmol/L Calcium 8.2 L (8.7-10.3) mg/dL Microbiology - Last 24 Hours (Table) 03/07/22 15:23 Blood Culture - Preliminary Blood No Growth after 48 hours - Imaging and Cardiology CT scan - chest: report reviewed Venous US: report reviewed Assessment and Plan (1) Left leg DVT Status: Acute Priority: High Code(s): I82.402 - ACUTE EMBOLISM AND THOMBOS UNSP DEEP VEINS OF L LOW EXTREM SNOMED Code(s): 445023053 (2) Factor V Leiden mutation Status: Chronic Priority: High Code(s): D68.51 - ACTIVATED PROTEIN C RESISTANCE SNOMED Code(s): 840570753 Plan: Patient has a history of factor V Leiden mutation and prothrombin gene mutation. She has been on anticoagulation with eliquis for at least 1-2 years. This is her third time having an acute component left lower extremity DVT. Also, has a newer diagnosis of rheumatoid arthritis. Possibly autoimmune disease has caused patient to create antibodies leading to a failure of her current anticoagulation? Phospholipid antibodies Ordered, cardiolipin antibodies negative so far, still pending beta-2 glycoprotein and lupus anticoagulant. Arixtra prescription $10 monthly. Patient agreeable. She has been instructed on subcutaneous injections. Baseline CTA Negative for PE and RLE doppler Negative for DVT. Follow-up with Dr. Rajan in the chart. Doctor attests: I performed a history and physical examination of this patient, developed impression and plan of care. Discussed with dictator. I agree with dictators note, documented as a scribe.
--- NOTE | 2022-03-09 19:16 | DS ---
DISCHARGE SUMMARY FINAL DIAGNOSES: 1. Acute deep venous thrombosis of the left leg with severe pain and swelling. 2. History of deep venous thrombosis. 3. History of gastroesophageal reflux disease. 4. Degenerative joint disease. 5. History of rheumatoid arthritis. 6. History of pancreatitis. 7. Possible Eliquis failure. 8. Multiple medical issues. DISCHARGE DISPOSITION: The patient will be discharged in stable condition with guarded prognosis. Arixtra has been recommended as an outpatient, cleared by Hematology/Oncology. HISTORY OF PRESENT ILLNESS: This 51-year-old woman, who was admitted with acute DVT of the left leg with failure of outpatient anticoagulation. Hematology only saw the patient. The patient improved significantly. CT of the abdomen and pelvis and CT angio chest was also negative. PHYSICAL EXAMINATION: VITAL SIGNS: Stable. CARDIOVASCULAR: S1, S2. ABDOMEN: Soft. NERVOUS SYSTEM: No focal deficit. Additional medications, please refer to the discharge list of medications for details. In essence, stop Eliquis and start Arixtra/fondaparinux 7.5 subcu daily for 1 month, and follow up with Dr. Rajan, Dr. Patten and Dr. Chowdary, Vascular as recommended. MMODL / IJN: [id number] /
[2022-03-13] MEDS ORDERED: metHOTREXate sodium 2.5 MG TAB PO SCH (09:00)
== END 2022-03-09 16:29 | disposition home or self-care (01) ==
LOC: EC 13:07 → 6NMEDSUR 17:30
PROVIDERS: ADMIT Internal Medicine; ATTEND Internal Medicine
DX: I82.412 Acute embolism and thrombosis of left femoral vein (principal); D68.51 Activated protein C resistance; D68.52 Prothrombin gene mutation; Q27.9 Congenital malformation of peripheral vascular system, unspecified; M06.9 Rheumatoid arthritis, unspecified; M19.90 Unspecified osteoarthritis, unspecified site; K21.9 Gastro-esophageal reflux disease without esophagitis; I87.2 Venous insufficiency (chronic) (peripheral); F17.210 Nicotine dependence, cigarettes, uncomplicated; Z79.01 Long term (current) use of anticoagulants; Z79.899 Other long term (current) drug therapy; Z86.718 Personal history of other venous thrombosis and embolism; Z90.710 Acquired absence of both cervix and uterus; Z95.5 Presence of coronary angioplasty implant and graft; Z87.19 Personal history of other diseases of the digestive system; Z98.890 Other specified postprocedural states
CPT/HCPCS: 96376 ×2; 96366 ×4; 96372; 96365; 96375 ×2; 99285; 36415; 86146; 80053; 80048 ×2; 84550; 85025 ×3; 85610; 85730 ×3; 86140; 86431; 85613; 87040; 85732; 85598; 86147; 73590; 73610; 93971 ×2; 71275; 74176; G0378 ×3; J2270; J1644 ×5; J1652; J1885; Q9967

== ENCOUNTER 2022-04-02 15:41 | Emergency (ER) | payer BC ==
[2022-04-02 15:55] VITALS: TEMP 98.1
[2022-04-02 16:26] LABS: Basophils # (A) 0.1 k/uL (0-0.2); Basophils % (A) 1 %; Eosinophils # (A) 0.3 k/uL (0-0.7); Eosinophils % (A) 2 %; HCT 40.5 % (34.0-46.0); HGB 13.4 gm/dL (11.4-16.0); Lymphocytes # (A) 4.7 k/uL (1.0-4.8); Lymphocytes % (A) 39 %; MCH 28.4 pg (25.0-35.0); MCV 85.9 fL (80.0-100.0); Mean Platelet Volume 7.4; Monocytes # (A) 0.6 k/uL (0-1.0); Monocytes % (A) 5 %; Neutrophils % (A) 49 %; Platelet Count 360 k/uL (150-450); RBC 4.71 m/uL (3.80-5.40); RDW 13.6 % (11.5-15.5); WBC 12.1 k/uL (3.8-10.6)
[2022-04-02 16:37] LABS: Partial Thromboplastin Time 27.4 sec (22.0-30.0); Prothrombin Time 10.2 sec (9.0-12.0)
--- NOTE | 2022-04-02 16:39 | ED ---
Arrhythmia/Palpitations HPI - General Source: patient, RN notes reviewed Mode of arrival: ambulatory Limitations: no limitations <Kathryn Kohli - Last Filed: 04/02/22 16:40> <Radha Macias - Last Filed: 04/03/22 01:17> - General Chief Complaint: Arrhythmia/Palpitations Stated Complaint: blood clot, dizziness, heart palp Time Seen by Provider: 04/02/22 16:39 - History of Present Illness Initial Comments: Patient is a 51 year old female who presents to the emergency department with a chief complaint of intermittent heart palpitations. First episode occurred 4 days ago while patient was sitting at home. Reports heart racing with associated substernal chest pressure, mild shortness of breath, and dizziness. The episode lasted 2 minutes which resolved on its own. No nausea, vomiting, syncope. Patient had 3 episodes today which brought her into the emergency department.She is currently being treated for DVT. She has history of factor V Leiden and has had multiple DVTs in the past. She was indefinitely placed on Eliquis until her recent admission on 03/07 when she was diagnosed with acute left femoral vein DVT while on Eliquis. Patient was switched to Arixtra daily injections which she has been taking. She denies history of pulmonary embolism and arrhythmia. She does smoke 1 pack a day. (Kathryn Kohli) 51-year-old female with past history of DVT on Arixtra who presents to the emergency department with chest pain. States that she had an episode of chest pain 4 days ago. Describes it as a pressure sensation. Only lasted a few minutes before resolved. States that she has had several episodes today of similar pain. She did have a history of DVT and was taking Eliquis. Patient had a DVT while taking the medications and therefore was switched to Arixtra. States she has been taking her medications as directed. Denies history of PE. When she was hospitalized last month she did have a CT of her chest performed which did not show a PE. She denies fevers, chills or cough. No cardiac history. Other alleviating, insurance biller or modifying factors (Radha Macias) - Related Data Home Medications Medication Instructions Recorded Confirmed Folic Acid 1 mg PO DAILY 02/25/22 04/02/22 Multivitamins, Thera [Multivitamin 1 tab PO DAILY 02/25/22 04/02/22 (formulary)] Simponi Infusion 1 dose IV Q42D 02/25/22 04/02/22 metHOTREXate sodium [Methotrexate] 12.5 mg PO SA 02/25/22 04/02/22 Previous Rx's Medication Instructions Recorded Ibuprofen [Motrin] 800 mg PO Q6HR PRN #30 tab 02/25/22 Fondaparinux [Arixtra] 7.5 mg SQ DAILY #30 03/08/22 Acetaminophen Tab [Tylenol] 650 mg PO Q6HR PRN tab 03/09/22 Allergies Allergy/AdvReac Type Severity Reaction Status Date / Time No Known Allergies Allergy Verified 04/02/22 17:39 Review of Systems ROS Other: All systems not noted in ROS Statement are negative. <Kathryn Kohli - Last Filed: 04/02/22 16:40> ROS Other: All systems not noted in ROS Statement are negative. <Radha Macias - Last Filed: 04/03/22 01:17> ROS Statement: Those systems with pertinent positive or pertinent negative responses have been documented in the HPI. Past Medical History Past Medical History: Blood Disorder, Deep Vein Thrombosis (DVT), GERD/Reflux, Osteoarthritis (OA), Rheumatoid Arthritis (RA) Additional Past Medical History / Comment(s): PANCREATITIS 2010 SECONDARY TO GB DYSFUNCTION. left leg DVT rheumatoid arthritis. hypercoaguable state D68.59. (factor 5) History of Any Multi-Drug Resistant Organisms: None Reported Past Surgical History: Cholecystectomy, Hysterectomy Additional Past Surgical History / Comment(s): BILATERAL CARPAL TUNNEL Past Anesthesia/Blood Transfusion Reactions: No Reported Reaction Past Psychological History: No Psychological Hx Reported Smoking Status: Current every day smoker Past Alcohol Use History: Occasional Past Drug Use History: None Reported <Kathryn Kohli - Last Filed: 04/02/22 16:40> General Exam Limitations: no limitations <Kathryn Kohli - Last Filed: 04/02/22 16:40> Course Vital Signs 04/02/22 04/02/22 04/02/22 15:52 18:12 20:08 Temperature 98.1 F Pulse Rate 86 79 100 Respiratory 16 18 16 Rate Blood Pressure 134/79 125/75 117/59 O2 Sat by Pulse 98 99 97 Oximetry EKG Findings - EKG Comments: EKG Findings:: EKG demonstrates sinus rhythm with a rate of 81. SD interval 127. QRS 94. QTC 389. No acute ST segment elevations or depressions <Radha Macias - Last Filed: 04/03/22 01:17> Medical Decision Making - Lab Data Result diagrams: 04/02/22 16:04 <Kathryn Kohli - Last Filed: 04/02/22 16:40> - Lab Data Result diagrams: 04/02/22 16:04 04/02/22 16:04 <Radha Macias Jodie - Last Filed: 04/03/22 01:17> - Medical Decision Making Was pt. sent in by a medical professional or institution? @ -[by , [facility], HUMAN RESOURCES ASSOCIATE, urgent care, hospital, or shelter] Did you speak to anyone other than the patient for history? @ -[EMS, parent, family, police, friend?] Did you review nursing and triage notes? @ -[agree or disagree, why?] Were old charts reviewed? @ -[outside hosp., previous admissions, EMS record, old EKG, old radiological studies, urgent care reports/EKGs, shelter records?] Differential Diagnosis? @ -[chest pain, altered mental status abdominal pain women, abdominal pain men, vaginal bleeding, weakness, fever, dyspnea, syncope, headache, dizziness, GI bleed, back pain, seizure] EKG interpreted by me (3pts min.)? @ -[none] X-rays interpreted by me (1pt min.)? @ -[none] CT interpreted by me (1pt min.)? @ -[none] U/S interpreted by me (1pt. min.)? @ -[none] What testing was considered but not performed? (CT, X-rays, U/S, labs)? Why? @ [CT, X-rays, U/S, labs? Why?] What meds were considered but not given? Why? @ -[none] Did you discuss the management of the patient with other professionals? @ -[professionals i.e. , PA, HUMAN RESOURCES ASSOCIATE, Lab, RT, Psych Nurse, Press Tender [employer], Obstetrics And Gynecology Professor, Teacher, Stockbroker, director of casework department? Give summary] Did you reconcile home meds? @ -[none] Was smoking cessation discussed for >3mins.? @ -[none] Was critical care preformed (if so, how long)? @ -[none] Were there social determinants of health that impacted care today? How? (Homelessness, low income, unemployed, alcoholism, drug addiction, transportation, low edu. Level, literacy, decrease access to med. care, long-term, rehab)? @ -[Homelessness, low income, unemployed, alcoholism, drug addiction, transp ortation, low edu. Level, literacy, decrease access to med. care, long-term, rehab?] Was there de-escalation of care discussed even if they declined? (Discuss DNR or withdrawal of care, Hospice)? @ -[Discuss DNR or withdrawal of care, Hospice?] What co-morbidities impacted this encounter? (DM, HTN, Smoking, COPD, CAD, Cancer, CVA, Hep., AIDS, mental health diagnosis, sleep apnea, morbid obesity)? @ -[DM, HTN, Smoking, COPD, CAD, Cancer, CVA, Hep., AIDS, mental health diagnosis, sleep apnea, morbid obesity?] Was patient admitted / discharged? @Upon arrival patient was placed into room 21. A thorough history and physical exam was performed. Laboratory states were conducted. Patient does go for a CT of her chest to evaluate for PE. Chest CT is negative for PE at this time. Results are discussed patient. She is satisfied with the workup. Patient will be discharged home at this time and instructed felt the primary care doctor for further evaluation. Return for any new or worsening symptoms. Patient agreeable treatment plan she is discharged in stable condition Undiagnosed new problem with uncertain prognosis? @ -[none] Drug Therapy requiring intensive monitoring for toxicity (Heparin, Nitro, Insulin, Cardizem)? @ -[none] Were any procedures done? @ -[none] Diagnosis/symptom? @ -[default] Acute, or Chronic, or Acute on Chronic? @ -[default] Uncomplicated (without systemic symptoms) or Complicated (systemic symptoms)? @ -[default] Side effects of treatment? @ -[none] Exacerbation, Progression, or Severe Exacerbation] @ -[no] Poses a threat to life or bodily function? @ -[no] (Radha Macias) - Lab Data Lab Results 04/02/22 04/02/22 04/02/22 Range/Units 06:04 06:04 16:04 WBC 12.1 H (3.8-10.6) k/uL RBC 4.71 (3.80-5.40) m/uL Hgb 13.4 (11.4-16.0) gm/dL Hct 40.5 (34.0-46.0) % MCV 85.9 (80.0-100.0) fL MCH 28.4 (25.0-35.0) pg MCHC 33.0 (31.0-37.0) g/dL RDW 13.6 (11.5-15.5) % Plt Count 360 (150-450) k/uL MPV 7.4 Neutrophils % 49 % Lymphocytes % 39 % Monocytes % 5 % Eosinophils % 2 % Basophils % 1 % Neutrophils # 6.0 (1.3-7.7) k/uL Lymphocytes # 4.7 (1.0-4.8) k/uL Monocytes # 0.6 (0-1.0) k/uL Eosinophils # 0.3 (0-0.7) k/uL Basophils # 0.1 (0-0.2) k/uL PT (9.0-12.0) sec INR (<1.2) APTT (22.0-30.0) sec D-Dimer 0.30 (<0.60) mg/L FEU Sodium (137-145) mmol/L Potassium (3.5-5.1) mmol/L Chloride (98-107) mmol/L Carbon Dioxide (22-30) mmol/L Anion Gap mmol/L BUN (7-17) mg/dL Creatinine (0.52-1.04) mg/dL Est GFR (CKD-EPI)AfAm (>60 ml/min/1.73 sqM) Est GFR (CKD-EPI)NonAf (>60 ml/min/1.73 sqM) Glucose (74-99) mg/dL Calcium (8.4-10.2) mg/dL Magnesium (1.6-2.3) mg/dL Total Bilirubin (0.2-1.3) mg/dL AST (14-36) U/L ALT (4-34) U/L Alkaline Phosphatase (38-126) U/L Troponin I (0.000-0.034) ng/mL NT-Pro-B Natriuret Pep 35 pg/mL Total Protein (6.3-8.2) g/dL Albumin (3.5-5.0) g/dL 04/02/22 04/02/22 04/02/22 Range/Units 16:04 16:04 16:04 WBC (3.8-10.6) k/uL RBC (3.80-5.40) m/uL Hgb (11.4-16.0) gm/dL Hct (34.0-46.0) % MCV (80.0-100.0) fL MCH (25.0-35.0) pg MCHC (31.0-37.0) g/dL RDW (11.5-15.5) % Plt Count (150-450) k/uL MPV Neutrophils % % Lymphocytes % % Monocytes % % Eosinophils % % Basophils % % Neutrophils # (1.3-7.7) k/uL Lymphocytes # (1.0-4.8) k/uL Monocytes # (0-1.0) k/uL Eosinophils # (0-0.7) k/uL Basophils # (0-0.2) k/uL PT 10.2 (9.0-12.0) sec INR 1.0 (<1.2) APTT 27.4 (22.0-30.0) sec D-Dimer (<0.60) mg/L FEU Sodium 139 (137-145) mmol/L Potassium 4.0 (3.5-5.1) mmol/L Chloride 105 (98-107) mmol/L Carbon Dioxide 24 (22-30) mmol/L Anion Gap 10 mmol/L BUN 13 (7-17) mg/dL Creatinine 0.75 (0.52-1.04) mg/dL Est GFR (CKD-EPI)AfAm >90 (>60 ml/min/1.73 sqM) Est GFR (CKD-EPI)NonAf >90 (>60 ml/min/1.73 sqM) Glucose 98 (74-99) mg/dL Calcium 9.3 (8.4-10.2) mg/dL Magnesium 2.0 (1.6-2.3) mg/dL Total Bilirubin 0.3 (0.2-1.3) mg/dL AST 19 (14-36) U/L ALT 18 (4-34) U/L Alkaline Phosphatase 99 (38-126) U/L Troponin I <0.012 (0.000-0.034) ng/mL NT-Pro-B Natriuret Pep pg/mL Total Protein 7.7 (6.3-8.2) g/dL Albumin 4.4 (3.5-5.0) g/dL Disposition <KamillaKathryn - Last Filed: 04/02/22 16:40> Is patient prescribed a controlled substance at d/c from ED?: No Time of Disposition: 19:24 <Radha Macias - Last Filed: 04/03/22 01:17> Clinical Impression: Left leg DVT, Chest pain Disposition: HOME SELF-CARE Condition: Stable Instructions (If sedation given, give patient instructions): Chest Pain (ED) Additional Instructions: You did not have a blood clot in your lungs at this time. Follow up with your [facility] doctor in 2-4 days and return for any new or worsening symptoms Referrals: Idalia Patten MD [Primary Care Provider] - 1-2 days
[2022-04-02 16:43] LABS: ALT 18 U/L (4-34); AST 19 U/L (14-36); African American GFR (CKD) >90 (>60 ml/min/1.73 sqM); Albumin 4.4 g/dL (3.5-5.0); Alkaline Phosphatase 99 U/L (38-126); Anion Gap 10 mmol/L; Blood Urea Nitrogen 13 mg/dL (7-17); Calcium 9.3 mg/dL (8.4-10.2); Carbon Dioxide 24 mmol/L (22-30); Chloride 105 mmol/L (98-107); Glucose 98 mg/dL (74-99); Non-African American GFR(CKD) >90 (>60 ml/min/1.73 sqM); Sodium 139 mmol/L (137-145); Total Bilirubin 0.3 mg/dL (0.2-1.3); Total Protein 7.7 g/dL (6.3-8.2)
--- NOTE | 2022-04-02 16:52 | XR ---
EXAMINATION TYPE: XR chest 2V DATE OF EXAM: 04/02/2022 COMPARISON: 02/25/2022 HISTORY: Chest pain TECHNIQUE: 2 views FINDINGS: Heart and mediastinum are normal. Lungs are clear. Diaphragm is normal. Bony thorax is inta ct. IMPRESSION: Normal chest. No change from
--- NOTE | 2022-04-02 19:01 | CT ---
EXAMINATION TYPE: CT chest angio for PE DATE OF EXAM: 04/02/2022 COMPARISON: 03/08/2022 HISTORY: SOB, dizziness CT DLP: 474.5 mGycm Automated exposure control for dose reduction was used. CONTRAST: Performed with IV Contrast, patient injected with 100 mL of Isovue 370. Images obtained from the thoracic inlet through the diaphragm with the IV contrast. The lung bases are clear. No pleural effusion. Heart size is normal. No pericardial effusion. There is mild pulmonary emphysema in the periphery of the upper lobes. No pulmonary consolidation. There is no mediastinal adenopathy. There are no hilar masses. There are a few bronchial lymph nodes up to 1 cm bilaterally. Thoracic aorta is intact. No aneurysm or dissection. There is normal contrast opacification of the pulmonary arteries. No filling defect. The thoracic spi ne is intact. No compression fracture. Sternum is intact. No evidence of rib fracture. IMPRESSION: No evidence of pulmonary embolism. There are a few nonspecific bronchial lymph nodes. No pulmonary in filtrates. No suspicious pulmonary mass. Normal heart. Mild pulmonary emphysema.
[2022-04-02 20:09] VITALS: BP 117/59; PULSE 100; RESP 16
== END 2022-04-02 20:12 | disposition home or self-care (01) ==
LOC: EC 15:41
DX: I82.402 Acute embolism and thrombosis of unspecified deep veins of left lower extremity (principal); R07.89 Other chest pain; F17.200 Nicotine dependence, unspecified, uncomplicated
CPT/HCPCS: 36415; 93005; 85379; 83880; 80053; 83735; 84484; 85025; 85610; 85730; 71046; 71275; 99285; Q9967

== ENCOUNTER → 2022-06-24 | Outpatient (CLI) | payer OTHER ==
--- NOTE | 2022-06-24 14:00 | CTL ---
EXAMINATION TYPE: CT Low Dose Lung DATE OF EXAM ORDERED: 06/24/2022 HISTORY: . Lung cancer screening CT DLP: 84.[address] CTDI: 2.4 mGy Automated exposure control for dose reduction was used. SCREENING VISIT: Initial COMPARISON: CT 04/02/2022 TECHNIQUE: Low dose computed tomography scan was performed through the chest at 1 mm thick sections a nd reconstructed images in the coronal plane at [address] DIAGNOSTIC QUALITY: Satisfactory FINDINGS: LUNG NODULES: Present, detailed below: 1. A tiny 0.3 cm nodular density within the left upper lung field. Series 3 image 109. LUNGS: COPD: Severity: None Fibrosis: Severity: None Lymph nodes: There is a 1.0 cm pretracheal lymph node. Series 4 image 18. Additional shotty lymphaden opathy is present. Other findings: None RIGHT PLEURAL SPACE: Effusion: None Calcification: None Thickening: None Pneumothorax: None LEFT PLEURAL SPACE: Effusion: None Calcification: None Thickening: None Pneumothorax: None HEART: Heart Size: Normal Coronary calcification: None Pericardial effusion: None OTHER FINDINGS: Upper abdomen: Normal Bony thorax: Normal Supraclavicular region: Normal Other: Ascending thoracic aorta at the level the main pulmonary artery measures 3.4 cm. The main pul monary artery at the bifurcation measures 2.6 cm. IMPRESSION: 1. There is a 1 cm lymph node within the mediastinum which is nonspecific but considered enlarged by CT criteria. No additional suspicious findings are evident. FOLLOW UP CT CHEST RECOMMENDATION: Follow up CT chest in [address] LUNG RAD: Lung-Rad 3 Probably Benign
== END | disposition home or self-care (01) ==
LOC: RADCTMAIN 08:09
PROVIDERS: ATTEND Family Medicine
DX: Z12.2 Encounter for screening for malignant neoplasm of respiratory organs (principal); F17.210 Nicotine dependence, cigarettes, uncomplicated
CPT/HCPCS: 71271

== ENCOUNTER → 2022-06-30 | Outpatient (CLI) | payer OTHER ==
--- NOTE | 2022-07-01 18:29 | MM ---
Reason for Exam: Screening (asymptomatic). Last mammogram was performed 2 year(s) and 1 month(s) ago. Patient History: Menarche at age 13. First Full-Term at age 20. Hysterectomy at age 41. Hormonal Contraceptives for 1 year, 6 months, from age 19 until age 21. Risk Values: Nusrat 5 year model risk: 0.9%. NCI Lifetime model risk: 7.9%. Prior Study Comparison: 10/07/2009 Bilateral Screening Mammogram, [facility]. 10/17/2009 Left Diagnostic Mammogram, [facility]. 12/29/2018 Bilateral MG 3D screening mammo w/cad, [facility]. 06/12/2020 Bilateral MG 3D screening mammo w/cad, [facility]. Tissue Density: The breast tissue is almost entirely fat. Findings: Analyzed By CAD. Chronic low density nodularity lateral left breast. There is no suspicious group of microcalcifications or new suspicious mass in either breast. Overall Assessment: Benign, BI-RAD 2 Management: Screening Mammogram of both breasts in 1 year. 1. Patient should continue monthly self breast exams. 2. A clinical breast exam by your physician is recommended on an annual basis. 3. This exam should not preclude additional follow-up of suspicious palpable abnormalities. Electronically signed and approved by: Stef Dixon M.D. Radiologist
== END | disposition home or self-care (01) ==
LOC: RADMAMWWP 10:25
PROVIDERS: ATTEND Family Medicine
DX: Z12.31 Encounter for screening mammogram for malignant neoplasm of breast (principal)
CPT/HCPCS: 77063; 77067

== ENCOUNTER → 2023-01-26 | Outpatient (CLI) | payer OTHER ==
--- NOTE | 2023-01-27 10:15 | CT ---
EXAMINATION TYPE: CT chest w con DATE OF EXAM: 01/26/2023 COMPARISON: 06/24/2022, 04/02/2022 03/08/2022 HISTORY: Solitary Pulmonary nodule. CT DLP: 625 mGycm Automated exposure control for dose reduction was used. TECHNIQUE: CT scan of the chest is performed with IV Contrast, patient injected with 100 ml mL of Isovue 300. M IP Images are created on CT scanner and reviewed. 3D reconstructed images are created on an [employer] workstation and reviewed. FINDINGS: LUNGS: There is emphysematous changes. Mild paraseptal emphysema noted. No consolidative pneumonia, p leural effusion, or pneumothorax. Previously noted 3 mm nodule left upper lobe stable. Aorta of normal caliber. Mild coronary artery calcification. Heart size normal. There are scattered s hoddy lymph nodes seen within the hilum and mediastinum similar. However, the left suprahilar region there is a 9 mm low density nodule possibly related to a lymph node. MEDIASTINUM: There are no greater than 1 cm hilar or mediastinal lymph nodes. No pericardial effusi on is seen. OTHER: Postcholecystectomy changes. Mild localized fatty infiltration adjacent to the falciform liga ment. Hypertrophic and degenerative change of the spine. IMPRESSION: 1. Stable 9 mm nodule likely representing a lymph node in the left suprahilar region unchanged from 2 022. Therefore, most likely reactive lymph node. Correlation with PET/CT could be obtained as clinica lly warranted.
== END | disposition home or self-care (01) ==
LOC: RADCTMAIN 17:04
PROVIDERS: ATTEND Family Medicine
DX: R91.1 Solitary pulmonary nodule (principal)
CPT/HCPCS: 71260; Q9967

== ENCOUNTER → 2023-04-19 | Outpatient (CLI) | payer BC, OTHER ==
--- NOTE | 2023-04-19 10:16 | US ---
EXAMINATION TYPE: US venous doppler duplex LE LT DATE OF EXAM: 04/19/2023 9:50 AM COMPARISON: 03/07/22 CLINICAL INDICATION: Female, 52 years old with history of I82.5Z9 CHR EMBLSM AND THOMBOS UNSP DEEP VN UNSP D; HX DVT SIDE PERFORMED: Left TECHNIQUE: The lower extremity deep venous system is examined utilizing real time linear array sonog deb with graded compression, doppler sonography and color-flow sonography. VESSELS IMAGED: Common Femoral Vein Deep Femoral Vein Greater Saphenous Vein * Femoral Vein Popliteal Vein Small Saphenous Vein * Proximal Calf Veins (* superficial vessels) Left Leg: Positive for chronic DVT patient was on Eliquis but still had DVT, now is doing injections. Non-occlusive chronic DVT noted throughout the femoral vein and duplicate femoral vein very slow thready flow noted throughout exam limited by body habitus IMPRESSION: Left nonocclusive chronic appearing deep vein tendinosis throughout the femoral vein and duplicate fe moral vein.
== END | disposition home or self-care (01) ==
LOC: RADUSWWP 09:19
PROVIDERS: ATTEND Internal Medicine Hematology & Oncology
DX: I82.512 Chronic embolism and thrombosis of left femoral vein (principal); D68.59 Other primary thrombophilia; R51.9 Headache, unspecified; R06.02 Shortness of breath